=== PATIENT | female | born 1940 | race Caucasian/White ===

== ENCOUNTER 2017-07-09 10:58 | Inpatient (IN) | payer MEDICARE ==
[~2017-07-09] VITALS: Ht 172.7 cm; Wt 110.7 kg
--- NOTE | 2017-07-09 11:03 | NUR ---
JOHANNA FROM [facility]: G-TUBE REMOVAL. SEND BY DR MAE
[2017-07-09 12:07] LABS: BASOPHILS % (AUTO) 0.7 % (0.0-2.0); EOSINOPHILS # (AUTO) 0.5 /CMM (0.0-0.7); EOSINOPHILS % (AUTO) 6.8 % (0.0-6.0); HEMATOCRIT 28 % (33-45); HEMOGLOBIN 8.9 g/dL (11.5-14.8); LYMPHOCYTES # (AUTO) 1.4 /CMM (0.8-4.8); LYMPHOCYTES % (AUTO) 20.6 % (20.0-44.0); MEAN CORPUSCULAR HEMOGLOBIN 32 PG (26.0-33.0); MEAN CORPUSCULAR HGB CONC 32 g/dl (31.0-36.0); MEAN CORPUSCULAR VOLUME 100 fL (82-100); MONOCYTES # (AUTO) 0.7 /CMM (0.1-1.30); MONOCYTES % (AUTO) 10.1 % (2.0-12.0); NEUTROPHILS # (AUTO) 4.3 /CMM (1.8-8.9); NEUTROPHILS % (AUTO) 61.8 % (43.0-81.0); PLATELET COUNT (AUTO) 204 /CMM (150-450); RDW COEFFICIENT OF VARIATION 16.9 (11.5-15.0); RED BLOOD CELL COUNT(AUTO) 2.78 MIL/uL (4.0-5.2); WHITE BLOOD COUNT (AUTO) 6.9 K/uL (4.3-11.0)
[2017-07-09 12:20] LABS: CALCIUM, SERUM 8.7 mg/dL (8.5-10.1); CARBON DIOXIDE 26 mmol/L (21-32); CHLORIDE 105 mmol/L (98-107); CREATININE 1.2 mg/dL (0.6-1.3); GLUCOSE 123 mg/dL (74-106); POTASSIUM 3.9 mmol/L (3.5-5.1); SODIUM SERUM 139 mmol/L (136-145); UREA NITROGEN, BLOOD 8 mg/dL (7-18)
[2017-07-09] MEDS ORDERED: ASCO250T5 PO (12:29)
[2017-07-09] MEDS ORDERED: DARB60DI SQ (12:29)
[2017-07-09] MEDS ORDERED: ALBU2.5V38 NEB (12:29)
[2017-07-09] MEDS ORDERED: CLON0.1T PO (12:29)
[2017-07-09] MEDS ORDERED: MAGN400O6 PO (12:29)
[2017-07-09] MEDS ORDERED: CHOL200026 PO (12:29)
[2017-07-09] MEDS ORDERED: FOLI1TAB16 PO (12:29)
[2017-07-09] MEDS ORDERED: OMEP40CA37 PO (12:29)
[2017-07-09] MEDS ORDERED: ATOR20TA PO (12:29)
[2017-07-09] MEDS ORDERED: LEVO75TA7 PO (12:29)
[2017-07-09] MEDS ORDERED: BISA10SU8 RC (12:29)
[2017-07-09] MEDS ORDERED: APIX5TAB PO (12:29)
[2017-07-09] MEDS ORDERED: SIME120L PO (12:29)
[2017-07-09] MEDS ORDERED: SUCR1TAB PO (12:29)
[2017-07-09] MEDS ORDERED: HYDR-552 PO (12:29)
[2017-07-09] MEDS ORDERED: INSU100V26 SQ (12:29)
[2017-07-09] MEDS ORDERED: ACET-868 PO (12:29)
[2017-07-09] MEDS ORDERED: MULT1TAB11 PO (12:29)
[2017-07-09] MEDS ORDERED: NA P133E RC (12:29)
[2017-07-09 12:47] LABS: INR 1.09 (0.87-1.13); PROTHROMBIN TIME 11.7 SECS (9.5-12.7)
--- NOTE | 2017-07-09 13:21 | NUR ---
PAGED JEWELRY BEARING MAKER MD FOR PANEL FOR ADMISSION
--- NOTE | 2017-07-09 13:44 | NUR ---
PAGED DR CARRANZA FOR GI CONSULT
--- NOTE | 2017-07-09 13:49 | NUR ---
DR CARRANZA CALLED BACK, TRANSFERRED CALL TO DR DOUGLAS
--- NOTE | 2017-07-09 14:13 | NUR ---
GAVE REPORT TO RAINA ZABALA MEDSURG DR CRUZ AND DR RENEE SOLORIO . REMOVAL OF GTUBE
[2017-07-09 15:00] VITALS: BP 111/51
--- NOTE | 2017-07-09 15:00 | NUR ---
RN NOTES PT. HAS G TUBE IN PLACE AWAITING REMOVAL THIS SATURDAY BY DR. CARRANZA.
--- NOTE | 2017-07-09 15:00 | NUR ---
ADMISSION RECEIVED PT. A&OX4. MOVED TO ROOM 327 BED 2. BREATHING UNLABORED. NO S/S OF ACUTE DISTRESS. PT. HAS A LEFT UPPER ARM PICC IV ACCESS LINE, AND A RIGHT CHEST WALL CATHETER. PT. RECEIVED DIALYSIS YESTERDAY PER PT. PT.'S BELONGINGS LIST WAS COMPLETED AND SIGNED.
[2017-07-09] MEDS ORDERED: IV D5/0.45 NACL 1,000 ML IV PRN (15:21)
[2017-07-09] MEDS ORDERED: ONDANSETRON HCL/PF 4 MG/2 ML VIAL IVP PRN (15:30)
[2017-07-09] MEDS ORDERED: ACETAMINOPHEN 325 MG TABLET PO PRN (15:30)
[2017-07-09] MEDS ORDERED: Z GUARD REMEDY 2 OZ OINT TP PRN (15:30)
[2017-07-09] MEDS ORDERED: MAG HYDROX/AL HYDROX/SIMETH 30 ML UDC PO PRN (15:30)
[2017-07-09] MEDS ORDERED: MAGNESIUM HYDROXIDE 30 ML UDC PO PRN ×2 (15:30→23:00)
[2017-07-09 16:00] VITALS: BP 111/51
--- NOTE | 2017-07-09 16:30 | NUR ---
RN NOTES PT. PICTURES TAKEN ON SKIN ASSESSMENT.
[2017-07-09] MEDS ORDERED: DEXTROSE 50%-WATER 50 ML DISP.SYRIN IV PRN (18:00)
--- NOTE | 2017-07-09 18:00 | NUR ---
BLOOD SUGAR 132 MG/DL, PT. REFUSED COVERAGE.
[2017-07-09] MEDS: BLOOD SUGAR DIAGNOSTIC 1 EACH STRIP IN SCH ×2 (18:31→22:01)
[2017-07-09] MEDS: INSULIN REGULAR, HUMAN 100 UNIT/ML 3 ML VIAL SQ PRN (18:31)
--- NOTE | 2017-07-09 19:11 | NUR ---
RN CLOSING NOTES PT. IS IN BED A&OX4. BREATHING ON OXYGEN 2L/MIN, AND NO S/S OF SOB. NO S/S OF ACUTE DISTRESS. PER IV FLUIDS HELD AT THIS TIME DUE TO PT. IS ABLE TO TOLERATE FOOD/LIQUID INTAKE. BED IS IN LOW POSITION, 2 SIDE RAILS UP, AND INSTRUCTED PT. TO USE CALL LIGHT FOR ASSISTANCE.
--- NOTE | 2017-07-09 19:35 | NUR ---
MS/RN NOTES RECEIVED PT. LYING IN BED. AWAKE, ALERT AND ORIENTED X3. BREATHING EVEN AND UNLABORED ON 2LPM O2 VIA NC. NO SOB, RESPIRATORY DISTRESS OR PAIN NOTED AT THIS TIME. PT. WITH LEFT UPPER ARM PICC PRESENT, PATENT AND INTACT. NO S/S OF HYPO/HYPERGLYCEMIA NOTED AT THIS TIME. BED LOCKED AND IN LOWEST POSITION, CALL LIGHT WITHIN REACH, SIDE RAILS UP X2, WILL CONTINUE TO MONITOR.
[2017-07-09 20:00] VITALS: BP 101/59
[2017-07-09] MEDS: HYDROCODONE/APAP 5/325MG 1 EACH TABLET PO PRN (21:56)
[2017-07-09] MEDS ORDERED: ALBUTEROL FS 2.5 MG/3 ML VIAL.NEB NEB PRN (23:00)
[2017-07-09] MEDS ORDERED: BISACODYL SUPP (10 MG) 10 MG/SUPP.RECT SUPP.RECT RC PRN (23:00)
[2017-07-09] MEDS ORDERED: CLONIDINE HCL 0.1 MG TABLET PO PRN (23:00)
--- NOTE | 2017-07-10 06:40 | NUR ---
MS/RN NOTES PT. IS LYING IN BED RESTING. BREATHING EVEN AND UNLABORED ON 2LPM O2 VIA NC. NO SOB, RESPIRATORY DISTRESS OR PAIN NOTED AT THIS TIME. NO S/S OF HYPO/HYPERGLYCEMIA NOTED AT THIS TIME AND THROUGHOUT SHIFT. PT. WITH LEFT UPPER ARM PICC PRESENT, PATENT AND INTACT. ALL PT. NEEDS MET. BED LOCKED AND IN LOWEST POSITION, CALL LIGHT WITHIN REACH, SIDE RAILS UP X2, WILL ENDORSE TO DAYSHIFT NURSE FOR CONTINUITY OF CARE.
[2017-07-10] MEDS: BLOOD SUGAR DIAGNOSTIC 1 EACH STRIP IN SCH ×4 (06:47→21:21)
[2017-07-10 07:42] LABS: BASOPHILS % (AUTO) 0.4 % (0.0-2.0); EOSINOPHILS # (AUTO) 0.4 /CMM (0.0-0.7); EOSINOPHILS % (AUTO) 6.7 % (0.0-6.0); HEMATOCRIT 28 % (33-45); HEMOGLOBIN 8.9 g/dL (11.5-14.8); LYMPHOCYTES # (AUTO) 1.9 /CMM (0.8-4.8); LYMPHOCYTES % (AUTO) 29.3 % (20.0-44.0); MEAN CORPUSCULAR HEMOGLOBIN 32 PG (26.0-33.0); MEAN CORPUSCULAR HGB CONC 32 g/dl (31.0-36.0); MEAN CORPUSCULAR VOLUME 101 fL (82-100); MONOCYTES # (AUTO) 0.7 /CMM (0.1-1.30); MONOCYTES % (AUTO) 11.4 % (2.0-12.0); NEUTROPHILS # (AUTO) 3.4 /CMM (1.8-8.9); NEUTROPHILS % (AUTO) 52.2 % (43.0-81.0); PLATELET COUNT (AUTO) 196 /CMM (150-450); RED BLOOD CELL COUNT(AUTO) 2.77 MIL/uL (4.0-5.2); WHITE BLOOD COUNT (AUTO) 6.5 K/uL (4.3-11.0)
[2017-07-10 07:58] LABS: CALCIUM, SERUM 8.8 mg/dL (8.5-10.1); CARBON DIOXIDE 28 mmol/L (21-32); CHLORIDE 105 mmol/L (98-107); CREATININE 1.5 mg/dL (0.6-1.3); GLUCOSE 129 mg/dL (74-106); MAGNESIUM 1.9 mg/dL (1.8-2.4); PHOSPHORUS 3.6 mg/dL (2.5-4.9); POTASSIUM 3.8 mmol/L (3.5-5.1); SODIUM SERUM 138 mmol/L (136-145); UREA NITROGEN, BLOOD 11 mg/dL (7-18)
--- NOTE | 2017-07-10 07:59 | NUR ---
RN OPENING NOTES RECEIVED PT. IN BED SLEEPING, EASILY AWAKENS. PT. IS A&OX4. BREATHING UNLABORED ON OXYGEN 2L/MIN WITH NASAL CANNULA. NO S/S OF ACUTE DISTRESS. BED IS IN LOWEST POSITION, 2 SIDE RAILS UP, AND INSTRUCTED PT. TO USE CALL LIGHT WITHIN REACH. ALL NEEDS ATTENDED TO AT THIS TIME.
[2017-07-10 08:00] VITALS: BP 129/61
--- NOTE | 2017-07-10 08:55 | NUR ---
RT NOTE: LATE ENTRY EKG REPORTED TO NURSE
[2017-07-10] MEDS ORDERED: SIMETHICONE SUSP 40 MG/0.6 ML BOTTLE PO PRN (09:00)
--- NOTE | 2017-07-10 09:00 | NUR ---
RN NOTES PT. SWALLOWS FLUIDS AND MEDICATIONS WITHOUT DIFFICULTY. PT. IS TOLERATING FOOD INTAKE AND SWALLOWING. PT. IS WEARING DENTURES UPPER AND LOWER.
[2017-07-10] MEDS: LEVOTHYROXINE SODIUM 75 MCG TABLET PO SCH (09:07)
[2017-07-10] MEDS: FOLIC ACID 1 MG TABLET PO SCH (09:07)
[2017-07-10] MEDS: ASCORBIC ACID 500 MG TABLET PO SCH (09:07)
[2017-07-10] MEDS: SUCRALFATE 1 G TABLET PO SCH ×3 (09:07→17:04)
[2017-07-10] MEDS: PANTOPRAZOLE 40 MG TABLET.DR PO SCH (09:07)
[2017-07-10 09:27] LABS: THYROID STIMULATING HORMONE 1.199 uIU/mL (0.358-3.74)
--- NOTE | 2017-07-10 15:00 | NUR ---
RN NOTES PT. IS VOIDING. PT. VOIDED IN BED ROMO CLEAR AND YELLOW URINE.
--- NOTE | 2017-07-10 15:50 | NUR ---
RN NOTES PT.'S PICC LINE IS INTACT AND PATENT TO FLUSH WITH 10 CC OF NORMAL SALINE.
[2017-07-10 16:00] VITALS: BP 133/72
--- NOTE | 2017-07-10 18:55 | NUR ---
RN CLOSING NOTES PT. IN BED SLEEPING, AWAKENS EASILY. PT. IS A&OX4. BREATHING UNLABORED ON OXYGEN 2L/MIN WITH NASAL CANNULA. NO S/S OF ACUTE DISTRESS. BED IS IN LOWEST POSITION, BED ALARM ON, 2 SIDE RAILS UP, AND INSTRUCTED PT. TO USE CALL LIGHT WITHIN REACH. PT. WAS SEEN AND EXAMINED TODAY BY DR. CRUZ.
--- NOTE | 2017-07-10 19:40 | NUR ---
RN INITIAL NOTES: RECEIVED REPORT FROM RAINA ZABALA, PT IN BED, AWAKE, A/O X3, PT ON 2L VIA NC, RESPIRATION EVEN AND UNLABORED, PT HAS RCW HD CATH IN PLACED DRESSING C/D/I, PT ALSO HAVE STEPHANIE PICC LINE WITH DOUBLE LUMEN PATENT AND FLUSHING WELL, ON HL. BLE OFFLOADED, SAFETY PRECAUTIONS FOR FALL INITIATED CALL LIGHT IN REACH, WILL CONTINUE TO MONITOR.
[2017-07-10 19:58] VITALS: BP 128/61
[2017-07-10 20:00] VITALS: BP 128/61
--- NOTE | 2017-07-10 20:00 | NUR ---
VJ INITIAL NOTES: RECEIVED REPORT FROM VIVIENNE ZABALA, PT IN BED, AWAKE, A/O X3, PT ON 2L VIA NC, RESPIRATION EVEN AND UNLABORED, PT HAS RCW HD CATH IN PLACED DRESSING C/D/I, PT ALSO HAVE STEPHANIE PICC LINE WITH DOUBLE LUMEN PATENT AND FLUSHING WELL, ON HL. BLE OFFLOADED, SAFETY PRECAUTIONS FOR FALL INITIATED CALL LIGHT IN REACH, WILL CONTINUE TO MONITOR. Addendum: 07/11/17 at 0003 by ADELINE SMITH RN CORRECTION OF ENTRY: RECEIVED REPORT FROM RAINA AND KAY PALAFOX
[2017-07-10] MEDS ORDERED: HEPARIN SODIUM, PORCINE 5000 UNITS/1 ML VIAL SQ SCH (21:00)
[2017-07-10] MEDS: ATORVASTATIN 10 MG TABLET PO SCH (21:21)
[2017-07-10] MEDS: HYDROCODONE/APAP 5/325MG 1 EACH TABLET PO PRN (21:21)
[2017-07-10] MEDS: INSULIN REGULAR, HUMAN 100 UNIT/ML 3 ML VIAL SQ PRN (21:21)
--- NOTE | 2017-07-10 21:21 | NUR ---
PRN NORCO: PT C/O LOWER BACK PAIN 04/29 REQUESTING FOR NORCO, PRN NORCO 5/325 MG TAB PO ADMINISTERED TO THE PT AT THIS TIME, EDUCATE PT REGARDING MEDICATION SIDE EFFECT, WILL CONTINUE TO MONITOR AND REASSESS
--- NOTE | 2017-07-10 21:25 | NUR ---
ACCU CHECK: BLOOD SUGAR CHECK AND REVEAL 127, NO INSULIN COVERAGE GIVEN PER SLIDING SCALE, WILL MONITOR PT FOR ANY S/S OF HYPOGLYCEMIA
--- NOTE | 2017-07-10 21:52 | NUR ---
HOLD DOSE OF HEPARIN: INFORMED DR SINGLETARY THAT PT IS GOING FOR EGD TOMORROW AM, PER MD TO HOLD ORDER FOR HEPARIN TONIGHT 07/10/17
--- NOTE | 2017-07-10 22:13 | NUR ---
RN NOTES: EXPLAINED TO THE PT THAT SHE WILL BE GOING FOR AN EGD IN AM AND PEG REMOVAL, PT AGREE AND UNDERSTAND THE RISK AND BENEFITS, AND GIVING HER FULL CONSENT FOR THE PROCEDURE, EVERYTHING ARE SIGNED BY THE PT,
[2017-07-11 06:37] LABS: BASOPHILS # (AUTO) 0.1 /CMM (0.0-0.2); EOSINOPHILS # (AUTO) 0.4 /CMM (0.0-0.7); EOSINOPHILS % (AUTO) 6.7 % (0.0-6.0); HEMATOCRIT 28 % (33-45); HEMOGLOBIN 9.2 g/dL (11.5-14.8); LYMPHOCYTES # (AUTO) 1.9 /CMM (0.8-4.8); MEAN CORPUSCULAR HEMOGLOBIN 33 PG (26.0-33.0); MEAN CORPUSCULAR HGB CONC 33 g/dl (31.0-36.0); MEAN CORPUSCULAR VOLUME 101 fL (82-100); MONOCYTES # (AUTO) 0.7 /CMM (0.1-1.30); NEUTROPHILS # (AUTO) 3.4 /CMM (1.8-8.9); NEUTROPHILS % (AUTO) 52.3 % (43.0-81.0); PLATELET COUNT (AUTO) 193 /CMM (150-450); RDW COEFFICIENT OF VARIATION 16.3 (11.5-15.0); WHITE BLOOD COUNT (AUTO) 6.4 K/uL (4.3-11.0)
[2017-07-11] MEDS: INSULIN REGULAR, HUMAN 100 UNIT/ML 3 ML VIAL SQ PRN ×2 (06:40→12:34)
[2017-07-11] MEDS: BLOOD SUGAR DIAGNOSTIC 1 EACH STRIP IN SCH ×4 (06:40→21:48)
--- NOTE | 2017-07-11 06:41 | NUR ---
ACCU CHECK: BLOOD SUGAR CHECKED AND REVEAL 117, NO INSULIN COVERAGE GIVEN PER SLIDING SCALE, WILL MONITOR PT FOR ANY S/S OF HYPOGLYCEMIA
--- NOTE | 2017-07-11 06:42 | NUR ---
RN NOTES: PT'S SWEATER, GLASSES AND Z GUARD PLACED IN A BELONGING BAG WITH PT'S SENIOR HR MANAGER IT, ALSO DENTURE CAP GIVEN TO THE PT INFORMED THAT HER DENTURES NEEDS TO BE REMOVE, PT AGREE AND STATED SHE WILL TAKE HER DENTURES BY HERSELF SHE FEELS MORE COMFORTABLE DOING IT HERSELF.
[2017-07-11 06:46] LABS: INR 1.11 (0.87-1.13)
--- NOTE | 2017-07-11 06:53 | NUR ---
RN CLOSING NOTES: PT AWAKE, A/O X3 ON 2L VIA NC, RESPIRATION EVEN AND UNLABORED, STEPHANIE PICC LINE REMAINS PATENT AND FLUSHING WELL, ON HL, ALSO RCW HD CATH REMAINS IN PLACED. PT ON NPO EXCEPT MEDS, FOR EGD TODAY CONSENT SIGNED BY THE PT, PROCEDURE WILL BE AT 0800AM WITH DR CARRANZA,CHECKLIST COMPLETED. VS REMAINS STABLE, NEEDS ATTENDED, SAFETY PRECAUTIONS FOR FALL REMAINS ENGAGED, CALL LIGHT IN REACH, WILL ENDORSE TO DAY RN FOR DUTCH.
[2017-07-11 06:54] VITALS: BP 134/71
[2017-07-11 06:58] LABS: CALCIUM, SERUM 8.6 mg/dL (8.5-10.1); CARBON DIOXIDE 27 mmol/L (21-32); CHLORIDE 108 mmol/L (98-107); CREATININE 1.5 mg/dL (0.6-1.3); GLUCOSE 129 mg/dL (74-106); SODIUM SERUM 141 mmol/L (136-145); UREA NITROGEN, BLOOD 14 mg/dL (7-18)
--- NOTE | 2017-07-11 07:25 | NUR ---
RN NOTES PATIENT AWAKE ALERT AND VERBALLY RESPONSIVE ABLE TO MAKE NEEDS KNOWN. RESPIRATIONS EVEN AND UNLABORED, IN NO APPARENT PAIN OR DISCOMFORT AT THIS TIME. IV ACCESS PATENT AND INTACT, NO REDNESS OR INFILTRATION NOTED. KEPT CLEAN DRY AND COMFORTABLE, CALL LIGHT WITHIN EASY REACH, WILL CONTINUE TO MONITOR, PATIENT FOR PROCEDURE TODAY.
--- NOTE | 2017-07-11 07:45 | NUR ---
RN NOTES PATIENT TAKEN TO OR BY TRANSPORTER, IN STABLE CONDITION WILL CONTINUE TO MONITOR UPON RETURN TO UNIT
[2017-07-11 08:30] VITALS: BP 147/63
[2017-07-11] MEDS: SUCRALFATE 1 G TABLET PO SCH ×3 (10:12→17:46)
[2017-07-11] MEDS: ASCORBIC ACID 500 MG TABLET PO SCH (10:12)
[2017-07-11] MEDS: LEVOTHYROXINE SODIUM 75 MCG TABLET PO SCH (10:13)
[2017-07-11] MEDS: FOLIC ACID 1 MG TABLET PO SCH (10:13)
[2017-07-11] MEDS: PANTOPRAZOLE 40 MG TABLET.DR PO SCH (10:13)
[2017-07-11] MEDS ORDERED: ANESTHESIA TRAY IN PYXIS 1 EA TRAY MC ONE ×4 (10:16)
[2017-07-11] MEDS: APIXABAN 5 MG TABLET PO SCH ×2 (11:42→17:46)
--- NOTE | 2017-07-11 12:36 | NUR ---
SW consult requested by Dr. Jaramillo to investigate why Pt. has a Gtube and is receiving dialysis when it is not needed at this time. SW met with pt. bedside. Pt. is alert and oriented x4. Pt. was watching TV when SW met with pt. Pt. informed SW that she was at [facility] prior to being at [facility]. Pt. stated when she arrived at [facility] they were unable to locate her dentures and glasses. Pt. believes that since she did not have her teeth the hospital placed a Gtube to assist in feeding. Pt. also stated she began receiving dialysis at [facility] as well. Per Dr. Jaramillo, pt. does not need peg placement or dialysis at this time.
[2017-07-11 16:00] VITALS: BP 138/71
--- NOTE | 2017-07-11 19:08 | NUR ---
RN NOTES PATIENT AWAKE ALERT AND VERBALLY RESPONSIVE ABLE TO MAKE NEEDS KNOWN. RESPIRATIONS EVEN AND UNLABORED, IN NO APPARENT PAIN OR DISCOMFORT AT THIS TIME. IV ACCESS PATENT AND INTACT, NO REDNESS OR INFILTRATION NOTED. S/P GTUBE REMOVAL NO DRAINAGE NOTED TO SITE, KEPT CLEAND, WOUND CARE ORDERED. KEPT CLEAN DRY AND COMFORTABLE, CALL LIGHT WITHIN EASY REACH, WILL CONTINUE TO MONITOR AND ENDORSE TO NEXT SHIFT FOR CONTINUITY OF CARE
--- NOTE | 2017-07-11 19:40 | NUR ---
RN OPENING NOTES RECEIVED REPORT FROM SOLE GAN RN. FOUND Pt AWAKE RESTING IN BED. Pt IS A/OX4. NO S/S OF ACUTE DISTRESS OR SOB NOTED. NO C/O PAIN AT THIS TIME. IV ACCESS ON STEPHANIE PICC, DOUBLE LUMEN; RCW HD CATH. SAFETY MEASURES IN PLACE. BED LOW, LOCKED, HOB ELEVATED, SIDE RAILS UP, CALL LIGHT AND BEDSIDE TABLE WITHIN REACH. WILL CONTINUE TO MONITOR Pt THROUGHOUT THE NIGHT FOR SAFETY.
[2017-07-11 20:00] VITALS: BP 122/60
[2017-07-11] MEDS: ATORVASTATIN 10 MG TABLET PO SCH (21:48)
--- NOTE | 2017-07-11 21:53 | NUR ---
HS ACCUCHECK BG 94. NO INSULIN COVERAGE NEEDED AT THIS TIME.
[2017-07-11] MEDS: HYDROCODONE/APAP 5/325MG 1 EACH TABLET PO PRN (21:58)
--- NOTE | 2017-07-12 06:30 | NUR ---
AC ACCUCHECK BG 108. NO INSULIN COVERAGE NEEDED AT THIS TIME.
--- NOTE | 2017-07-12 06:46 | NUR ---
RN CLOSING NOTES NO SIGNIFICANT CHANGES IN Pt's CONDITION. Pt REMAINS STABLE ON M/S. NO S/S OF ACUTE DISTRESS OR SOB NOTED DURING THE NIGHT. ALL NEEDS MET AND ATTENDED TO. SAFETY MEASURES IN PLACE. WILL ENDORSE TO DAYSHIFT RN FOR Pt's DUTCH.
[2017-07-12] MEDS: BLOOD SUGAR DIAGNOSTIC 1 EACH STRIP IN SCH ×2 (07:00→12:17)
--- NOTE | 2017-07-12 07:30 | NUR ---
RN NOTES PATIENT ALERT AND ORIENTED X4. VS STABLE. RESPIRATIONS EVEN AND UNLABORED. NO RESPIRATORY DISTRESS. NO SIGNIFICANT CHANGES IN CONDITION. BED IN LOW POSITION. SIDE RAILS X2. CALL LIGHT WITHIN REACH. CONTINUE TO MONITOR.
[2017-07-12 07:46] LABS: CALCIUM, SERUM 8.8 mg/dL (8.5-10.1); CARBON DIOXIDE 27 mmol/L (21-32); CHLORIDE 106 mmol/L (98-107); CREATININE 1.5 mg/dL (0.6-1.3); GLUCOSE 117 mg/dL (74-106); MAGNESIUM 1.8 mg/dL (1.8-2.4); PHOSPHORUS 4.4 mg/dL (2.5-4.9); POTASSIUM 4.3 mmol/L (3.5-5.1); SODIUM SERUM 140 mmol/L (136-145); UREA NITROGEN, BLOOD 16 mg/dL (7-18)
[2017-07-12 08:00] VITALS: BP 132/70
[2017-07-12] MEDS: PANTOPRAZOLE 40 MG TABLET.DR PO SCH (08:09)
[2017-07-12] MEDS: SUCRALFATE 1 G TABLET PO SCH ×2 (08:09→12:24)
[2017-07-12] MEDS: FOLIC ACID 1 MG TABLET PO SCH (08:10)
[2017-07-12] MEDS: APIXABAN 5 MG TABLET PO SCH (08:10)
[2017-07-12] MEDS: LEVOTHYROXINE SODIUM 75 MCG TABLET PO SCH (08:10)
[2017-07-12] MEDS: ASCORBIC ACID 500 MG TABLET PO SCH (08:10)
[2017-07-12] MEDS ORDERED: BUMETANIDE (1 MG) 1 MG TABLET PO SCH (11:30)
[2017-07-12] MEDS ORDERED: NYSTATIN TOP POWDER 15 GM BOTTLE TP SCH (12:30)
[2017-07-12] MEDS: INSULIN REGULAR, HUMAN 100 UNIT/ML 3 ML VIAL SQ PRN (12:47)
--- NOTE | 2017-07-12 14:30 | NUR ---
RN NOTES PER MD ORDERS, OBTAIN CONSENT FOR REMOVAL OF HD CATHETER SITE, EXPLAINED BY MD WITH NOTED VERBAL UNDERSTANDING, MD REMOVED CENTRAL LINE WITH NO COMPLICATIONS, CONTINUE TO MONITOR
[2017-07-12 16:07] VITALS: BP 141/72
--- NOTE | 2017-07-12 16:30 | NUR ---
RN NOTES PATIENT DISCHARGED TO [facility] BY AMBULANCE. VS STABLE. TRANSFERRED VIA STRETCHER WITH TWO DEGREASER. NO DISTRESS, NO SOB , PAIN NOTED. PICC LINE ON STEPHANIE WITH TWO LUMEN REPORT. SITE CLEAR, NO REDNESS NOTED, NO INFILTRATION NOTED. SKIN CLEAN AND INTACT. GIVEN TO SNF RN. BELONGINGS CHECKED AND BROUGHT BY THE PATIENT UPON DISCHARGE. DISCHARGE TEACHING PROVIDED, ALL DOCUMENTS SINGED AND DATED, COPIES PROVIDED TO [facility]. ALL MEDICATIONS ADMINISTERED BEFORE D/C ORDERED BY . Addendum: 07/12/17 at 1927 by ERASTO MOODY RN RN NOTES CORRECTION OF ENTRY PICC ON STEPHANIE REMOVED WITH NO COMPLICATIONS. REPORT GIVEN TO SNF RN. AWARE TO CONTINUE TO MONITOR.
[2017-09-05] MEDS ORDERED: LEVO500T15 PO (11:42)
[2017-09-05] MEDS ORDERED: Digoxin PO (11:42)
[2017-09-05] MEDS ORDERED: FURO-145 PO (11:42)
[2017-09-05] MEDS ORDERED: PRED20TA PO (11:42)
[2017-09-05] MEDS ORDERED: RIVA10TA PO (11:42)
== END 2017-07-12 16:24 | DRG 327 ==
LOC: ER 11:03 → MED 14:26
PROVIDERS: ADMIT Internal Medicine; ATTEND Internal Medicine
PROC: 0DB68ZX Excision of Stomach, Via Natural or Artificial Opening Endoscopic, Diagnostic (ICD-10-PCS; 2017-07-11)
PROC: 0DP64UZ Removal of Feeding Device from Stomach, Percutaneous Endoscopic Approach (ICD-10-PCS; principal; 2017-07-11 08:11)
PROC: 05PYX3Z Removal of Infusion Device from Upper Vein, External Approach (ICD-10-PCS; 2017-07-12)
DX: K94.23 Gastrostomy malfunction (principal); E44.0 Moderate protein-calorie malnutrition; E11.22 Type 2 diabetes mellitus with diabetic chronic kidney disease; D69.2 Other nonthrombocytopenic purpura; I48.0 Paroxysmal atrial fibrillation; I13.0 Hypertensive heart and chronic kidney disease with heart failure and stage 1 through stage 4 chronic kidney disease, or unspecified chronic kidney disease; L89.621 Pressure ulcer of left heel, stage 1; I50.32 Chronic diastolic (congestive) heart failure; E03.9 Hypothyroidism, unspecified; L89.611 Pressure ulcer of right heel, stage 1; E78.5 Hyperlipidemia, unspecified; E66.9 Obesity, unspecified; D53.9 Nutritional anemia, unspecified; K21.9 Gastro-esophageal reflux disease without esophagitis; K29.70 Gastritis, unspecified, without bleeding; Z79.01 Long term (current) use of anticoagulants; I25.10 Atherosclerotic heart disease of native coronary artery without angina pectoris; Z68.37 Body mass index [BMI] 37.0-37.9, adult; Y84.9 Medical procedure, unspecified as the cause of abnormal reaction of the patient, or of later complication, without mention of misadventure at the time of the procedure; Y82.8 Other medical devices associated with adverse incidents; Y92.129 Unspecified place in nursing home as the place of occurrence of the external cause; N18.9 Chronic kidney disease, unspecified; L30.4 Erythema intertrigo; L98.9 Disorder of the skin and subcutaneous tissue, unspecified; I87.8 Other specified disorders of veins
CPT/HCPCS: 36415; 71010-TC; 80048-TC; 80061-TC; 82306; 82728-TC; 82962-TC; 83540-TC; 83735-TC; 84100-TC; 84439-TC; 84443-TC; 85025-TC; 85610-TC; 85730-TC; 86850-TC; 87081-TC; 88305-TC; 88313-TC; 88342; 93307-TC; A4606; A6402; A6403; J1644; J1815; J2704; J3490; Z7610

== ENCOUNTER 2017-08-06 08:10 | Inpatient (IN) | payer MEDICARE ==
[~2017-08-06] VITALS: Ht 172.7 cm; Wt 115.2 kg
[~2017-08-06 08:10] MED LIST: ACET-868 PO; ALBU2.5V38 NEB; APIX5TAB PO; ASCO250T5 PO; ATOR20TA PO; BISA10SU8 RC; CHOL200026 PO; CLON0.1T PO; DARB60DI SQ; FOLI1TAB16 PO; HYDR-552 PO; INSU100V26 SQ; LEVO75TA7 PO; MAGN400O6 PO; MULT1TAB11 PO; NA P133E RC; OMEP40CA37 PO; SIME120L PO; SUCR1TAB PO
--- NOTE | 2017-08-06 08:15 | NUR ---
BERNARDINO FROM [facility] FOR RECTAL BLEED. PATIENT A/OX 4. BREATHING EVEN AND UNLABORED. NO SOB. TACHYCARDIC, NO DISTRESS. SAFETY AND COMFORT MEASURES IN PLACE. AWAITING MD ORDERS.
[2017-08-06] MEDS ORDERED: FAMOTIDINE/PF INJ 20 MG/2 ML VIAL IV ONE ×2 (08:30→08:39)
[2017-08-06] MEDS ORDERED: MORPHINE SULFATE INJ 2 MG/ML DISP.SYRIN IV ONE (08:30)
[2017-08-06] MEDS ORDERED: ONDANSETRON HCL/PF 4 MG/2 ML VIAL IVP ONE (08:30)
[2017-08-06] MEDS ORDERED: IV NS 0.9% 1,000 ML BAG IV ONE (08:30)
[2017-08-06] MEDS ORDERED: ONDANSETRON HCL/PF 4 MG/2 ML VIAL ONE (08:38)
[2017-08-06] MEDS ORDERED: MORPHINE SULFATE INJ 2 MG/ML DISP.SYRIN ONE (08:38)
--- NOTE | 2017-08-06 08:50 | NUR ---
NEW IV STARTED LAC, 20 G.
[2017-08-06] MEDS ORDERED: DILTIAZEM HCL 25 MG IV IV ONE ×2 (09:00→10:30)
--- NOTE | 2017-08-06 09:00 | NUR ---
PATIENT MEDICATED PER MD ORDERS.
[2017-08-06] MEDS ORDERED: DILTIAZEM HCL 25 MG IV ONE ×2 (09:03→10:32)
[2017-08-06] MEDS ORDERED: MELA3TAB PO (09:09)
[2017-08-06] MEDS ORDERED: DEXT15DR6 EACHEYE (09:09)
[2017-08-06] MEDS ORDERED: SIME80TA15 PO (09:09)
--- NOTE | 2017-08-06 09:30 | NUR ---
PATIENT TAKEN TO CT VIA STRETCHER.
[2017-08-06 09:36] LABS: EOSINOPHILS % (AUTO) 0.1 % (0.0-6.0); LYMPHOCYTES # (AUTO) 0.5 /CMM (0.8-4.8); MEAN CORPUSCULAR HEMOGLOBIN 31 PG (26.0-33.0); MEAN CORPUSCULAR HGB CONC 32 g/dl (31.0-36.0); MEAN CORPUSCULAR VOLUME 98 fL (82-100); MONOCYTES # (AUTO) 0.7 /CMM (0.1-1.30); RDW COEFFICIENT OF VARIATION 15.3 (11.5-15.0)
[2017-08-06 09:37] LABS: CALCIUM, SERUM 8.9 mg/dL (8.5-10.1); CARBON DIOXIDE 26 mmol/L (21-32); CHLORIDE 106 mmol/L (98-107); CREATININE 1.3 mg/dL (0.6-1.3); GLUCOSE 175 mg/dL (74-106); POTASSIUM 4.2 mmol/L (3.5-5.1); SODIUM SERUM 140 mmol/L (136-145); UREA NITROGEN, BLOOD 29 mg/dL (7-18)
[2017-08-06 09:43] LABS: BASOPHILS % (AUTO) 0.3 % (0.0-2.0); HEMATOCRIT 32 % (33-45); HEMOGLOBIN 10.3 g/dL (11.5-14.8); LYMPHOCYTES % (AUTO) 4.7 % (20.0-44.0); MONOCYTES % (AUTO) 6.2 % (2.0-12.0); NEUTROPHILS # (AUTO) 9.6 /CMM (1.8-8.9); NEUTROPHILS % (AUTO) 88.7 % (43.0-81.0); PLATELET COUNT (AUTO) 195 /CMM (150-450); WHITE BLOOD COUNT (AUTO) 10.8 K/uL (4.3-11.0)
[2017-08-06 09:47] LABS: ALANINE AMINOTRANSFERASE 11 U/L (12-78); ALBUMIN 2.8 g/dL (3.4-5.0); ALKALINE PHOSPHATASE 75 U/L (46-116); ASPARTATE AMINOTRANSFERASE 19 U/L (15-37); BILIRUBIN,DIRECT 0.1 mg/dL (0.0-0.2); BILIRUBIN,TOTAL 0.5 mg/dL (0.2-1.0); LIPASE 34 U/L (73-393); TOTAL PROTEIN, SERUM 6.6 g/dL (6.4-8.2)
[2017-08-06 09:48] LABS: TROPONIN I 0.099 ng/mL (0.00-0.056)
--- NOTE | 2017-08-06 09:52 | NUR ---
PANEL PROGRESSIVE CARE NURSE PAGED
--- NOTE | 2017-08-06 09:57 | NUR ---
16 FR conroy catheter inserted per sterile protocal. Immediate output 50 ML of urine, color yellow, clarity cloudy.
[2017-08-06 10:04] LABS: INR 1.24 (0.87-1.13); PROTHROMBIN TIME 12.9 SECS (9.5-12.7)
--- NOTE | 2017-08-06 10:30 | NUR ---
ACCEPTED BY DR CRUZ,WANTS PATIENT ACCEPTED TO [facility]
--- NOTE | 2017-08-06 11:18 | NUR ---
URINE OBTAINED AND SENT TO LAB. REPORT GIVEN TO ARLET ZABALA FOR ADMISSION.
[2017-08-06 11:30] LABS: APPEARANCE,URINE Cloudy (CLEAR); BILIRUBIN,URINE SMALL (NEGATIVE); BLOOD, URINE Moderate Ery/uL (NEGATIVE); COLOR,URINE Other (YELLOW); KETONES,URINE Trace (NEGATIVE); LEUKOCYTE ESTERASE ,URINE Small (NEGATIVE); NITRITE, URINE Negative (NEGATIVE); PH,URINE 5.5 (5.0-8.0); PROTEIN,URINE 100 mg/dl (NEGATIVE); UGLUCOSE Negative (NEGATIVE); UROBILINOGEN,URINE 0.2 EU/dL (0.2)
[2017-08-06] MEDS ORDERED: ALBUTEROL FS 2.5 MG/3 ML VIAL.NEB NEB PRN (11:30)
[2017-08-06] MEDS ORDERED: MAGNESIUM HYDROXIDE 30 ML UDC PO PRN (11:30)
[2017-08-06] MEDS ORDERED: SIMETHICONE 80 MG TAB.CHEW PO PRN (11:30)
[2017-08-06] MEDS ORDERED: Z GUARD REMEDY 2 OZ OINT TP PRN (11:30)
[2017-08-06] MEDS ORDERED: ACETAMINOPHEN 325 MG TABLET PO PRN (11:30)
[2017-08-06] MEDS ORDERED: ZOLPIDEM TARTRATE 5 MG TABLET PO PRN (11:30)
[2017-08-06] MEDS ORDERED: ONDANSETRON HCL/PF 4 MG/2 ML VIAL IVP PRN (11:30)
[2017-08-06] MEDS ORDERED: MAG HYDROX/AL HYDROX/SIMETH 30 ML UDC PO PRN (11:30)
[2017-08-06] MEDS ORDERED: HYDROCODONE/APAP 5/325MG 1 EACH TABLET PO PRN (11:30)
--- NOTE | 2017-08-06 11:31 | NUR ---
PATIENT TRANSPORTED TO [facility] VIA ACLS PROTOCOL FOR ADMISSION. RNARLET TO PROVIDE DUTCH.
[2017-08-06 11:50] LABS: BACTERIA,URINE Few /HPF (None Seen); SQUAMOUS EPITHELIAL CELL,UR Few /HPF (None Seen)
[2017-08-06 12:00] VITALS: BP 107/61
--- NOTE | 2017-08-06 12:00 | NUR ---
LEARNING STRATEGIST NOTE RECEIVED PATIENT FROM ER WITH DX GI BLEEDING AFIB WITH RVR AND NSTEMI , ALERT , ORIENTED FAMILY AT BEDSIDE , ALL NEEDS ATTENDED VS TAKEN HOSPITAL ORIENTATION DONE, WITH BURGER CATH WITH YELLOW COLOR URINE , RT FA HL INTACT NO S\INFECTION ,ADMITTED UNDER CARE DR CRUZ, WILL CONT TO MONITOR CLOSELY
[2017-08-06 12:12] VITALS: BP 107/61
[2017-08-06] MEDS: SUCRALFATE 1 G TABLET PO SCH ×2 (12:59→17:10)
[2017-08-06] MEDS: DILTIAZEM HCL 30 MG TABLET PO SCH ×3 (12:59→23:51)
[2017-08-06] MEDS: METOPROLOL TARTRATE 25 MG TABLET PO SCH ×2 (13:00→21:41)
--- NOTE | 2017-08-06 15:00 | NUR ---
TECHNICAL ARCHITECT NOTE SEEN BY DR CHAVEZ BEHAVIORAL GENETICIST AWARE THAT TROP 0.099
[2017-08-06 16:41] VITALS: BP 103/63
--- NOTE | 2017-08-06 17:53 | NUR ---
WASHER OFF NOTE TROPONIN 0.189 DR CRUZ AWARE
--- NOTE | 2017-08-06 18:06 | NUR ---
CONE TREATER NOTE SPOKE WITH DR ANTHONY PAINTING TO ORDER SLIDING SCALE WITH INSULIN , PATIENT HAS HX DM , ORDER CARRIED OUT
[2017-08-06] MEDS ORDERED: DEXTROSE 50%-WATER 50 ML DISP.SYRIN IV PRN (18:30)
--- NOTE | 2017-08-06 18:59 | NUR ---
CENTRAL SUPPLY MANAGER NOTE ALL NEEDS ATTENDED ,NOT IN ACUTE DISTRESS
[2017-08-06 20:00] VITALS: BP 128/68
--- NOTE | 2017-08-06 20:40 | NUR ---
HYBRID TECHNOLOGIST INITIAL NOTE PT RECEIVED IN NO ACUTE DISTRESS AT THIS TIME. PT IS A/O X4 AND ABLE TO MAKE NEEDS KNOWN. BREATHING PATTERN IS NORMAL WITH ADEQUATE CHEST RISE/FALL. PT IS ON THE TELE WITH AFIB 90 CONTROLLED. F/C IS CLEAN DRY AND INTACT DRAINING URINE. THERE IS A RIGHT FA 20G THAT IS CLEAN DRY AND INTACT WELL. COMFORT AND SAFETY MEASURES TO BE PLACED FOR PT DURING THE SHIFT. WILL CONTINUE TO MONITOR FOR ANY CHANGES.
[2017-08-06] MEDS: ATORVASTATIN 10 MG TABLET PO SCH (21:40)
[2017-08-06] MEDS: BLOOD SUGAR DIAGNOSTIC 1 EACH STRIP IN SCH (21:41)
--- NOTE | 2017-08-06 21:53 | NUR ---
BS AT 2200 WAS 137. TO GIVE INSULIN COVERAGE.
[2017-08-06] MEDS: INSULIN REGULAR, HUMAN 100 UNIT/ML 3 ML VIAL SQ PRN (21:56)
[2017-08-07] VITALS: BP 93/42
[2017-08-07 04:00] VITALS: BP 135/45
[2017-08-07] MEDS: DILTIAZEM HCL 30 MG TABLET PO SCH ×3 (05:29→17:21)
--- NOTE | 2017-08-07 05:35 | NUR ---
LOT ASSOCIATE CLOSING NOTE PT REMAINS IN NO ACUTE DISTRESS AT THE END OF THE SHIFT. VITALS WNL. ALL DUE MEDICATIONS AND WOUND CARE DONE ORDERED. COMFORT AND SAFETY MEASURES CARRIED OUT THROUGHOUT THE SHIFT. WILL ENDORSE CARE TO AM NURSE.
[2017-08-07 07:34] LABS: BASOPHILS % (AUTO) 0.5 % (0.0-2.0); EOSINOPHILS # (AUTO) 0.2 /CMM (0.0-0.7); EOSINOPHILS % (AUTO) 3.2 % (0.0-6.0); HEMATOCRIT 32 % (33-45); HEMOGLOBIN 10.2 g/dL (11.5-14.8); LYMPHOCYTES # (AUTO) 1.8 /CMM (0.8-4.8); LYMPHOCYTES % (AUTO) 26.3 % (20.0-44.0); MEAN CORPUSCULAR HEMOGLOBIN 32 PG (26.0-33.0); MEAN CORPUSCULAR HGB CONC 32 g/dl (31.0-36.0); MEAN CORPUSCULAR VOLUME 98 fL (82-100); MONOCYTES # (AUTO) 0.7 /CMM (0.1-1.30); MONOCYTES % (AUTO) 10.5 % (2.0-12.0); NEUTROPHILS # (AUTO) 4.2 /CMM (1.8-8.9); NEUTROPHILS % (AUTO) 59.5 % (43.0-81.0); PLATELET COUNT (AUTO) 191 /CMM (150-450); RDW COEFFICIENT OF VARIATION 15.1 (11.5-15.0); RED BLOOD CELL COUNT(AUTO) 3.21 MIL/uL (4.0-5.2)
--- NOTE | 2017-08-07 07:38 | NUR ---
RN NOTES RECEIVED PT FROM PARENT AIDE IN STABLE CONDITION, ON ROOM AIR, A&0X3, NO SOB OR DISTRESS. A FIB ON THE TELE MONITOR HR 88. BURGER CATH DRAINING TO GRAVITY. R WRIST 20G IV SITE DRY AND INTACT, NO IVF. BED LOCKED AND IN LOWEST POSITION, SIDE RAILS UX3, CALL LIGHT WITHIN REACH, WILL CONT TO MONITOR.
[2017-08-07 07:59] LABS: CALCIUM, SERUM 8.3 mg/dL (8.5-10.1); CARBON DIOXIDE 27 mmol/L (21-32); CHLORIDE 105 mmol/L (98-107); CREATININE 1.4 mg/dL (0.6-1.3); GLUCOSE 118 mg/dL (74-106); MAGNESIUM 1.8 mg/dL (1.8-2.4); PHOSPHORUS 3.7 mg/dL (2.5-4.9); POTASSIUM 4.1 mmol/L (3.5-5.1); SODIUM SERUM 139 mmol/L (136-145); UREA NITROGEN, BLOOD 29 mg/dL (7-18)
[2017-08-07 08:00] VITALS: BP 140/61
[2017-08-07 08:30] LABS: CHOLESTEROL 96 mg/dL (<200); HDL CHOLESTEROL 43 mg/dL (40-60); LDL 47 mg/dL (0-99); TRIGLYCERIDES 67 mg/dL (30-150)
[2017-08-07] MEDS: BLOOD SUGAR DIAGNOSTIC 1 EACH STRIP IN SCH ×4 (09:09→21:11)
[2017-08-07] MEDS: METOPROLOL TARTRATE 25 MG TABLET PO SCH ×2 (09:10→21:12)
[2017-08-07] MEDS: LEVOTHYROXINE SODIUM 75 MCG TABLET PO SCH (09:10)
[2017-08-07] MEDS: SUCRALFATE 1 G TABLET PO SCH ×3 (09:11→17:21)
[2017-08-07] MEDS: FOLIC ACID 1 MG TABLET PO SCH (09:11)
[2017-08-07] MEDS ORDERED: HYDROGEL DRESSING 90 GM TUBE TP PRN (10:30)
[2017-08-07] MEDS ORDERED: HYDROGEL DRESSING 90 GM TUBE TP SCH (10:30)
--- NOTE | 2017-08-07 10:31 | NUR ---
WOUND CARE CONSULT: PT PRESENTS WITH STAGE 2 ULCER TO SACRAL AREA, PRESENT ON ADMISSION WELL RASH TO BUTTOCKS WITH PEELING SKIN. BARIMAX BED WITH ETS AIR ORDERED. PT TO BE TURNED AND REPOSITIONED EVERY 2 HRS PT CONDITION PERMITS, HEELS FLOATED. ALL SKIN PROTECTION MEASURES IN PLACE AND DISCUSSED WITH NURSING STAFF. WILL SEE PRN. ANN IN AGREEMENT WITH PLAN OF CARE. Addendum: 08/07/17 at 1032 by DELBERT STAFFORD WNDNU Amended: Links added.
[2017-08-07] MEDS: CLOTRIMAZOLE 1% 15 GM TUBE TP SCH ×2 (11:26→17:22)
[2017-08-07] MEDS: INSULIN REGULAR, HUMAN 100 UNIT/ML 3 ML VIAL SQ PRN ×2 (11:45→16:34)
[2017-08-07 12:00] VITALS: BP 109/67
[2017-08-07] MEDS: HYDROCODONE/APAP 5/325MG 1 EACH TABLET PO PRN ×2 (13:02→21:22)
[2017-08-07] MEDS ORDERED: VITAMINS A AND D 56.7 GM TUBE TP PRN (14:00)
[2017-08-07 16:00] VITALS: BP 116/58
--- NOTE | 2017-08-07 18:28 | NUR ---
RN NOTES PT RESTING IN BED ON RA NO SOB OR DISTRESS NOTED. NO SIGNIFICANT CHANGES THROUGHOUT THE SHIFT, REMAINED IN STABLE CONDITION. VITAL SIGNS STABLE, ALL NEEDS MET. BED LOCKED AND IN LOWEST POSITION, SIDE RAILS UPX3, CALL LIGHT WITHIN REACH WILL ENDORSE TO ONCOMING SHIFT.
[2017-08-07 20:00] VITALS: BP_SYST 119; BP_DIAS 47; BP_DIAS 50
--- NOTE | 2017-08-07 20:09 | NUR ---
RN INITIAL MS NOTES RECEIVED PT FROM AM SHIFT IN STABLE CONDITION, ON ROOM AIR, A&0X3, NO SOB OR DISTRESS. A FIB ON THE TELE MONITOR HR 89. BURGER CATH DRAINING TO GRAVITY. R WRIST 20G IV SITE DRY AND INTACT, NO IVF. BED LOCKED AND IN LOWEST POSITION, SIDE RAILS UX3, CALL LIGHT WITHIN REACH, WILL CONT TO MONITOR.
[2017-08-07] MEDS: ATORVASTATIN 10 MG TABLET PO SCH (21:11)
--- NOTE | 2017-08-07 21:40 | NUR ---
PT REFUSED MIRALAX NOT GIVEN D/T PT C/O OF BOUTS OF LOOSE STOOL.
[2017-08-07] MEDS ORDERED: POLYETHYLENE GLYCOL 3350 17 GM POWD.PACK PO SCH (22:00)
[2017-08-08] VITALS: BP 106/58
--- NOTE | 2017-08-08 00:05 | NUR ---
0000 CARDIZEM 30 MG HELD FOR SBP 106/58 81, WILL CONT TO MONITOR
[2017-08-08 04:00] VITALS: BP 112/53
[2017-08-08] MEDS: DILTIAZEM HCL 30 MG TABLET PO SCH ×3 (05:56→12:27)
--- NOTE | 2017-08-08 06:18 | NUR ---
RN CLOSING MS NOTES ENDORSED PT TO AM SHIFT IN STABLE CONDITION, ON ROOM AIR, A&0X3, NO SOB OR DISTRESS. A FIB ON THE TELE MONITOR HR 84. BURGER CATH DRAINING TO GRAVITY. R WRIST 20G IV SITE DRY AND INTACT, NO IVF. BED LOCKED AND IN LOWEST POSITION, SIDE RAILS UX3, CALL LIGHT WITHIN REACH, WILL CONT TO MONITOR.
[2017-08-08] MEDS: BLOOD SUGAR DIAGNOSTIC 1 EACH STRIP IN SCH ×2 (06:35→12:17)
--- NOTE | 2017-08-08 07:10 | NUR ---
RN INITIAL NOTES: REC'D PT AWAKE ON BED, NOT IN ANY DISTRESS, A/OX 3, ABLE TO MAKE NEEDS KNOWN, DENIES ANY PAIN/DISCOMFORT. HAS R WRIST G20, SL, FLUSHED, PATENT & INTACT W/ NO S/SX OF INFECTION/INFILTRATION NOTED. HAS FC PATENT & INTACT DRAINING TO ADEQUATE URINE OUTPUT. PROVIDED COMFORT & SAFETY MEASURES. BED KEPT LOW & IN LOCKED POS. CALL LIGHT PLACED W/IN REACH. WILL CONTINUE TO MONITOR AND ATTEND PT'S NEEDS.
[2017-08-08 07:54] LABS: BASOPHILS % (AUTO) 0.7 % (0.0-2.0); EOSINOPHILS # (AUTO) 0.4 /CMM (0.0-0.7); EOSINOPHILS % (AUTO) 6.4 % (0.0-6.0); HEMATOCRIT 35 % (33-45); HEMOGLOBIN 11.1 g/dL (11.5-14.8); LYMPHOCYTES # (AUTO) 1.6 /CMM (0.8-4.8); LYMPHOCYTES % (AUTO) 28.6 % (20.0-44.0); MEAN CORPUSCULAR HEMOGLOBIN 32 PG (26.0-33.0); MEAN CORPUSCULAR HGB CONC 32 g/dl (31.0-36.0); MEAN CORPUSCULAR VOLUME 98 fL (82-100); MONOCYTES # (AUTO) 0.6 /CMM (0.1-1.30); NEUTROPHILS # (AUTO) 3.1 /CMM (1.8-8.9); NEUTROPHILS % (AUTO) 54.3 % (43.0-81.0); PLATELET COUNT (AUTO) 183 /CMM (150-450); RDW COEFFICIENT OF VARIATION 15.3 (11.5-15.0); RED BLOOD CELL COUNT(AUTO) 3.51 MIL/uL (4.0-5.2); WHITE BLOOD COUNT (AUTO) 5.8 K/uL (4.3-11.0)
[2017-08-08 08:00] VITALS: BP 108/56
[2017-08-08 08:07] LABS: CALCIUM, SERUM 8.4 mg/dL (8.5-10.1); CARBON DIOXIDE 29 mmol/L (21-32); CHLORIDE 106 mmol/L (98-107); CREATININE 1.3 mg/dL (0.6-1.3); GLUCOSE 103 mg/dL (74-106); MAGNESIUM 1.8 mg/dL (1.8-2.4); PHOSPHORUS 3.6 mg/dL (2.5-4.9); POTASSIUM 4.3 mmol/L (3.5-5.1); SODIUM SERUM 140 mmol/L (136-145); UREA NITROGEN, BLOOD 29 mg/dL (7-18)
[2017-08-08] MEDS: METOPROLOL TARTRATE 25 MG TABLET PO SCH (09:00)
[2017-08-08] MEDS: LEVOTHYROXINE SODIUM 75 MCG TABLET PO SCH (09:00)
[2017-08-08] MEDS: FOLIC ACID 1 MG TABLET PO SCH (09:00)
[2017-08-08] MEDS: SUCRALFATE 1 G TABLET PO SCH ×2 (09:01→12:27)
[2017-08-08] MEDS: CLOTRIMAZOLE 1% 15 GM TUBE TP SCH (09:02)
--- NOTE | 2017-08-08 11:09 | NUR ---
RN NOTES: PT SEEN & EXAMINED BY DR. MAE. PER , PT MAY DC BACK TO SNF.
[2017-08-08 12:27] VITALS: BP 128/68
[2017-08-08] MEDS: INSULIN REGULAR, HUMAN 100 UNIT/ML 3 ML VIAL SQ PRN (12:29)
[2017-08-08] MEDS: HYDROCODONE/APAP 5/325MG 1 EACH TABLET PO PRN ×2 (14:24→14:26)
--- NOTE | 2017-08-08 15:40 | NUR ---
COORDINATOR HOTELS NOTES: PT DC'D TO [facility] ORDERED. DC DOCUMENTS SIGNED BY PT AND GIVEN TO THE PARAMEDICS. ALL BELONGINGS CHECKED BY PULL TAB DEALER AND SENT W/ THE PT. BELONGINGS LIST SIGNED BY THE PT. REPORT GIVEN TO VJ DAIGLE AT [facility]. IV ACCESS REMOVED, PRESSURE DRESSING APPLIED, NO SIGN OF INFECTION NOTED. FC REMOVED ORDERED BY . PT WAS ABLE TO URINATE PRIOR TO DC. PT LEFT FACILITY IN STABLE CONDITION VIA GURNEY ACCOMPANIED BY PRIMER WATERPROOFING MACHINE ADJUSTER. NO CONCERNS IDENTIFIED AT THIS TIME. FAMILY IS AWARE OF THE TRANSFER. Addendum: 08/08/17 at 1728 by ELLIS HERNÁNDEZ RN ADDENDUM: WOUND CARE DONE AND WOUND PHOTOS TAKEN PRIOR TO DC AND PLACED IN CHART.
[2017-09-05] MEDS ORDERED: FURO-145 PO (11:42)
[2017-09-05] MEDS ORDERED: LEVO500T15 PO (11:42)
[2017-09-05] MEDS ORDERED: Digoxin PO (11:42)
[2017-09-05] MEDS ORDERED: RIVA10TA PO (11:42)
[2017-09-05] MEDS ORDERED: PRED20TA PO (11:42)
== END 2017-08-08 15:31 | DRG 377 ==
LOC: ER 08:12 → TELE 10:00 → TELE-TD 11:11 → TELE1 13:29 → MEDSG1 08-07 17:27
PROVIDERS: ADMIT Internal Medicine; ATTEND Internal Medicine
DX: K92.2 Gastrointestinal hemorrhage, unspecified (principal); I21.A1 Myocardial infarction type 2; E46 Unspecified protein-calorie malnutrition; D69.2 Other nonthrombocytopenic purpura; I48.0 Paroxysmal atrial fibrillation; E11.22 Type 2 diabetes mellitus with diabetic chronic kidney disease; E66.01 Morbid (severe) obesity due to excess calories; I48.91 Unspecified atrial fibrillation; I50.32 Chronic diastolic (congestive) heart failure; I13.0 Hypertensive heart and chronic kidney disease with heart failure and stage 1 through stage 4 chronic kidney disease, or unspecified chronic kidney disease; L89.621 Pressure ulcer of left heel, stage 1; D63.8 Anemia in other chronic diseases classified elsewhere; E78.5 Hyperlipidemia, unspecified; I25.10 Atherosclerotic heart disease of native coronary artery without angina pectoris; N18.9 Chronic kidney disease, unspecified; K21.9 Gastro-esophageal reflux disease without esophagitis; E03.9 Hypothyroidism, unspecified; Z79.01 Long term (current) use of anticoagulants; K59.09 Other constipation; Z68.38 Body mass index [BMI] 38.0-38.9, adult; Z88.2 Allergy status to sulfonamides; L89.611 Pressure ulcer of right heel, stage 1; I87.8 Other specified disorders of veins; L98.8 Other specified disorders of the skin and subcutaneous tissue
CPT/HCPCS: 36415; 71010-TC; 80048-TC; 80061-TC; 80076-TC; 81000-TC; 82962-TC; 83690-TC; 83735-TC; 84100-TC; 84484-TC; 85025-TC; 85730-TC; 86850-TC; 87081-TC; 87086-TC; A4606; A6248; J1815; J2270; J2405; J3490; J7030; Z7610

== ENCOUNTER 2017-09-02 16:21 | Inpatient (IN) | payer MEDICARE, MEDICAID ==
[~2017-09-02] VITALS: Ht 172.7 cm; Wt 115.2 kg
[~2017-09-02 16:21] MED LIST changes: -APIX5TAB PO; +DEXT15DR6 EACHEYE; +MELA3TAB PO; -SIME120L PO; +SIME80TA15 PO
--- NOTE | 2017-09-02 16:30 | NUR ---
BBRA FROM [facility] FOR WORSENING SOB. PATIENT ALSO C/O LOOSE STOOLS. A/OX 4. BREATHING EVEN AND UNLABORED, BILATERAL WHEEZING. VITALS STABLE. SAFETY AND COMFORT MEASURES IN PLACE. AWAITING MD ORDERS.
--- NOTE | 2017-09-02 17:00 | NUR ---
NEW IV STARTED ON LEFT HAND, 20 G.
[2017-09-02 17:15] LABS: ABG BASE EXCESS 7.9 mmol/L; ABG OXYGEN SATURATION 94.1 % (92.0-98.5); ABG PCO2 57.3 mmHg (35.0-45.0); ABG PH 7.395 (7.350-7.450); ABG PO2 72.5 mmHg (75.0-100.0); AaDO2 59.5 mmHg; COHb 0.3 % (0.5-1.5); MetHb 0.5 % (0.0-1.5); O2Hb 93.3 % (94.0-97.0); SITE, ABG Right Radial; VENT MODE, BG N/C
[2017-09-02] MEDS ORDERED: ALBUTEROL FS 2.5 MG/0.5 ML VIAL.NEB ONE (17:25)
[2017-09-02] MEDS ORDERED: IPRATROPIUM NEB FS 0.5 MG/2.5 ML AMPUL.NEB ONE (17:25)
[2017-09-02] MEDS ORDERED: ALBUTEROL FS 2.5 MG/3 ML VIAL.NEB CONTNEB ONE (17:30)
[2017-09-02] MEDS ORDERED: IPRATROPIUM NEB FS 0.5 MG/2.5 ML AMPUL.NEB NEB ONE (17:30)
[2017-09-02 17:31] LABS: BASOPHILS # (AUTO) 0.2 /CMM (0.0-0.2); BASOPHILS % (AUTO) 2.2 % (0.0-2.0); EOSINOPHILS # (AUTO) 0.2 /CMM (0.0-0.7); EOSINOPHILS % (AUTO) 2.9 % (0.0-6.0); HEMATOCRIT 30 % (33-45); LYMPHOCYTES # (AUTO) 1.3 /CMM (0.8-4.8); LYMPHOCYTES % (AUTO) 17.3 % (20.0-44.0); MEAN CORPUSCULAR HEMOGLOBIN 32 PG (26.0-33.0); MEAN CORPUSCULAR HGB CONC 33 g/dl (31.0-36.0); MEAN CORPUSCULAR VOLUME 95 fL (82-100); MONOCYTES # (AUTO) 0.7 /CMM (0.1-1.30); NEUTROPHILS % (AUTO) 67.6 % (43.0-81.0); PLATELET COUNT (AUTO) 259 /CMM (150-450); RDW COEFFICIENT OF VARIATION 14.5 (11.5-15.0); RED BLOOD CELL COUNT(AUTO) 3.18 MIL/uL (4.0-5.2); WHITE BLOOD COUNT (AUTO) 7.4 K/uL (4.3-11.0)
--- NOTE | 2017-09-02 17:38 | NUR ---
INSERT CONROY CATH PER DR. RIZZO. 16 FR conroy catheter inserted per sterile protocOl. Immediate output 60 ML of urine, color yellow, clarity cloudy.
[2017-09-02 17:49] LABS: INR 1.05 (0.87-1.13); PROTHROMBIN TIME 10.9 SECS (9.5-12.7)
[2017-09-02 17:51] LABS: CALCIUM, SERUM 8.8 mg/dL (8.5-10.1); CARBON DIOXIDE 33 mmol/L (21-32); CHLORIDE 104 mmol/L (98-107); CREATININE 1.2 mg/dL (0.6-1.3); GLUCOSE 167 mg/dL (74-106); POTASSIUM 4.8 mmol/L (3.5-5.1); SODIUM SERUM 142 mmol/L (136-145); UREA NITROGEN, BLOOD 22 mg/dL (7-18)
[2017-09-02 17:57] LABS: APPEARANCE,URINE CLOUDY (CLEAR); BILIRUBIN,URINE NEGATIVE (NEGATIVE); BLOOD, URINE 2+ Ery/uL (NEGATIVE); COLOR,URINE YELLOW (YELLOW); KETONES,URINE NEGATIVE (NEGATIVE); LEUKOCYTE ESTERASE ,URINE 3+ (NEGATIVE); NITRITE, URINE POSITIVE (NEGATIVE); PROTEIN,URINE 1+ mg/dl (NEGATIVE); UGLUCOSE NEGATIVE (NEGATIVE); UROBILINOGEN,URINE 0.2 EU/dL (0.2)
[2017-09-02 17:58] LABS: TROPONIN I 0.043 ng/mL (0.00-0.056)
[2017-09-02] MEDS ORDERED: AZITHROMYCIN 500 MG in IV D5W 250 ML IV ONE ×2 (18:00→18:30)
[2017-09-02] MEDS ORDERED: CEFTRIAXONE 1 G in IV D5W 50 ML IV ONE (18:00)
[2017-09-02 18:05] LABS: ALANINE AMINOTRANSFERASE 19 U/L (12-78); ALBUMIN 2.4 g/dL (3.4-5.0); ALKALINE PHOSPHATASE 92 U/L (46-116); ASPARTATE AMINOTRANSFERASE 24 U/L (15-37); BILIRUBIN,DIRECT 0.1 mg/dL (0.0-0.2); BILIRUBIN,TOTAL 0.3 mg/dL (0.2-1.0); TOTAL PROTEIN, SERUM 6.4 g/dL (6.4-8.2)
[2017-09-02 18:15] LABS: BACTERIA,URINE Many /HPF (None Seen)
[2017-09-02 18:16] LABS: SQUAMOUS EPITHELIAL CELL,UR Few /HPF (None Seen); WBC,URINE 51-80 /HPF (0-3)
--- NOTE | 2017-09-02 18:18 | NUR ---
REPORT GIVEN TO BOLIVAR FOR DUTCH.
[2017-09-02] MEDS ORDERED: CEFTRIAXONE 1GM BAG (ER ONLY) 50 ML IV ONE (18:28)
[2017-09-02] MEDS ORDERED: ONDANSETRON HCL/PF 4 MG/2 ML VIAL IVP PRN (18:30)
[2017-09-02] MEDS ORDERED: MAG HYDROX/AL HYDROX/SIMETH 30 ML UDC PO PRN (18:30)
[2017-09-02] MEDS ORDERED: CLONIDINE HCL 0.1 MG TABLET PO PRN (18:30)
[2017-09-02] MEDS ORDERED: MAGNESIUM HYDROXIDE 30 ML UDC PO PRN ×2 (18:30)
[2017-09-02] MEDS ORDERED: ALBUTEROL FS 2.5 MG/3 ML VIAL.NEB NEB PRN (18:30)
[2017-09-02] MEDS ORDERED: HYDROCODONE/APAP 5/325MG 1 EACH TABLET PO PRN (18:30)
[2017-09-02] MEDS ORDERED: NA PHOS,M-B/NA PHOS,DI-BA 1 EA ENEMA RC PRN (18:30)
[2017-09-02] MEDS ORDERED: POLYVINYL ALCOHOL 15 ML BOTTLE EACHEYE PRN (18:30)
[2017-09-02] MEDS ORDERED: BISACODYL SUPP (10 MG) 10 MG/SUPP.RECT SUPP.RECT RC PRN (18:30)
[2017-09-02] MEDS ORDERED: Z GUARD REMEDY 2 OZ OINT TP PRN (18:30)
[2017-09-02] MEDS ORDERED: methylPREDNISolone SOD SUCC 125 MG/2ML VIAL IV ONE (18:30)
[2017-09-02] MEDS ORDERED: ACETAMINOPHEN 325 MG TABLET PO PRN (18:30)
--- NOTE | 2017-09-02 19:37 | NUR ---
REPORT TO VJ MANLEY
--- NOTE | 2017-09-02 20:30 | NUR ---
BROADCAST CORRESPONDENT NOTE: RECEIVE PATIENT FROM ER, NO ACUTE DISTRESS NOTED. BREATHING EVEN AND UNLABORED, NO SOB NOTED. OXYGEN VIA NC IN PLACE AT 2 LPM. IV TO LEFT HAND IN PLACE. BURGER CATHETER IN PLACE, DRAINING CLEAR YELLOW URINE. ORIENTED PATIENT TO ROOM AND USE OF CALL LIGHT. BED LOCKED AND IN LOWEST POSITION, CALL LIGHT IN REACH. WILL CONTINUE TO MONITOR.
[2017-09-02 21:00] VITALS: BP 106/52
[2017-09-02] MEDS ORDERED: methylPREDNISolone SOD SUCC 125 MG/2ML VIAL ONE (21:33)
[2017-09-02] MEDS: FUROSEMIDE 40 MG/4 ML VIAL IV SCH (21:40)
[2017-09-02] MEDS ORDERED: Medication Not On Formulary EA (Melatonin 3 MG) PO SCH (22:00)
[2017-09-03] VITALS: BP 111/65
[2017-09-03] MEDS ORDERED: methylPREDNISolone SOD SUCC 40 MG/ML VIAL IV SCH
--- NOTE | 2017-09-03 01:00 | NUR ---
COMPUTER LABORATORY TECHNICIAN NOTE: PATIENT TELE READING UNCONTROLLED A-FIB WITH HR FROM 100 TO 130. PATIENT DENIES ANY CHEST PAIN OR DISCOMFORT. SPOKE TO WASH OIL PUMP OPERATOR HELPER ROSELINE ANN, NOHEMI, RECEIVED ORDERS FOR LOVENOX 1MG/KG, TO GIVE LOVENOX 100MG SQ TWICE A DAY. ALSO RECEIVE ORDERS FOR DIGOXIN 0.25MG IV ONCE AND THEN ANOTHER DOSE OF DIGOXIN 0.125MG IV AFTER FIRST DOSE GIVEN. THEN TO HAVE DIGOXIN 01.25 MG DAILY. DIGOXIN LEVEL TO ALSO BE CHECKED WITH MORNING LABS. ORDERS NOTED AND CARRIED OUT. WILL CONTINUE TO MONITOR.
[2017-09-03] MEDS ORDERED: DIGOXIN INJ 0.5 MG/2 ML AMPUL IV ONE ×2 (01:30→05:30)
[2017-09-03] MEDS ORDERED: ENOXAPARIN SODIUM 100 MG/ML DISP.SYRIN SQ ONE (01:58)
[2017-09-03] MEDS ORDERED: DIGOXIN INJ 0.5 MG/2 ML AMPUL ONE ×2 (01:59→05:50)
[2017-09-03] MEDS: ENOXAPARIN SODIUM 100 MG/ML DISP.SYRIN SQ SCH ×2 (02:05→09:43)
--- NOTE | 2017-09-03 03:15 | NUR ---
KETTLE LOADER NOTE: PATIENT RECEIVED SOLUMEDROL 40MG IV AT 0307, LAST DOSE WAS GIVEN AT 2140 AND ORDERED FOR EVERY 6 HOURS. NEXT DOSE TO BE GIVEN AT 0900, TO CALL PHARMACY IN MORNING TO ADJUST SCHEDULE TIME. WILL CONTINUE TO MONITOR.
[2017-09-03 04:00] VITALS: BP 134/76
--- NOTE | 2017-09-03 06:30 | NUR ---
ESCALATOR MECHANIC NOTE: PATIENT RESTING IN BED, NO ACUTE DISTRESS NOTED. BREATHING EVEN AND UNLABORED, NO SOB NOTED. OXYGEN VIA NC IN PLACE AT 2 LPM. IV TO LEFT HAND IN PLACE. BURGER CATHETER IN PLACE. TELE READING A-FIB UNCONTROLLED WITH HR FROM 100-140. DIGOXIN 0.125MG IV GIVEN PER MD ORDER. ORDER IN CHART FOR US GUIDED THORACENTESIS, CONSENT SIGNED AND IN CHART. BED LOCKED AND IN LOWEST POSITION, CALL LIGHT IN REACH. WILL ENDORSE TO DAY NURSE TO CONTINUE WITH PLAN OF CARE.
[2017-09-03 07:08] LABS: CALCIUM, SERUM 8.8 mg/dL (8.5-10.1); CARBON DIOXIDE 27 mmol/L (21-32); CHLORIDE 101 mmol/L (98-107); GLUCOSE 218 mg/dL (74-106); POTASSIUM 5.3 mmol/L (3.5-5.1); SODIUM SERUM 136 mmol/L (136-145); UREA NITROGEN, BLOOD 21 mg/dL (7-18)
[2017-09-03] MEDS: PANTOPRAZOLE 40 MG TABLET.DR PO SCH (07:30)
[2017-09-03] MEDS: LEVOTHYROXINE SODIUM 75 MCG TABLET PO SCH (07:30)
[2017-09-03 08:00] VITALS: BP 135/76
--- NOTE | 2017-09-03 08:15 | NUR ---
RN NOTES RECEIVED PT. PT IS STABLE AND SLEEPING IN BED. NO S/S OF RESPIRATORY DISTRESS OR PAIN. A/OX4. PT IS ON TELE MONITOR SHOWING AFIB AT 100-140. IV ACCESS ON LEFT HAND 20 G SALINE LOCKED. BURGER CATHETER IN PLACE AND PATENT. SAFETY MEASURES IN PLACE, CALL LIGHT WITHIN REACH. WILL CONTINUE TO MONITOR.
[2017-09-03] MEDS: CHOLECALCIFEROL 1,000 UNIT TABLET (VIT D3) PO SCH (09:00)
[2017-09-03] MEDS: ASCORBIC ACID 500 MG TABLET PO SCH (09:00)
[2017-09-03] MEDS: SUCRALFATE 1 G TABLET PO SCH ×3 (09:00→17:00)
[2017-09-03] MEDS: FOLIC ACID 1 MG TABLET PO SCH (09:00)
[2017-09-03] MEDS: MULTIVIT, IRON, MIN NO. 8, FA 1 TAB PO SCH (09:00)
--- NOTE | 2017-09-03 09:30 | NUR ---
RN NOTES ROCEPHIN NOT AVAILABLE IN CASSETTE. PHARMACY CONTACTED FOR MEDICATION. AWAITING ARRIVAL FOR ADMINISTRATION.
[2017-09-03] MEDS: methylPREDNISolone SOD SUCC 40 MG/ML VIAL IV SCH ×2 (09:39→17:43)
[2017-09-03] MEDS: FUROSEMIDE 40 MG/4 ML VIAL IV SCH (09:39)
--- NOTE | 2017-09-03 10:13 | NUR ---
THORACENTESIS ON HOLD PATIENT WAS GIVEN LOVENOX TODAY AY 0900. VJ HOLDER AWARE TO HOLD 1 DOSE 12 HRS BEFORE PROCEDURE. WILL BE DONE TOMORROW
[2017-09-03] MEDS: CEFTRIAXONE 1 G in IV D5W 50 ML IV SCH (11:07)
[2017-09-03 11:13] LABS: THYROID STIMULATING HORMONE 0.43 uIU/mL (0.358-3.74)
[2017-09-03 12:00] VITALS: BP 125/78
[2017-09-03] MEDS ORDERED: DARBEPOETIN ALFA IN POLYSORBAT 60 MCG SQ SCH (12:00)
[2017-09-03 12:18] LABS: EOSINOPHILS % (AUTO) 0.1 % (0.0-6.0); HEMATOCRIT 33 % (33-45); HEMOGLOBIN 10.8 g/dL (11.5-14.8); LYMPHOCYTES # (AUTO) 0.5 /CMM (0.8-4.8); LYMPHOCYTES % (AUTO) 10.7 % (20.0-44.0); MEAN CORPUSCULAR HEMOGLOBIN 32 PG (26.0-33.0); MEAN CORPUSCULAR HGB CONC 33 g/dl (31.0-36.0); MEAN CORPUSCULAR VOLUME 97 fL (82-100); MONOCYTES % (AUTO) 0.4 % (2.0-12.0); NEUTROPHILS # (AUTO) 3.9 /CMM (1.8-8.9); NEUTROPHILS % (AUTO) 88.8 % (43.0-81.0); PLATELET COUNT (AUTO) 219 /CMM (150-450); RDW COEFFICIENT OF VARIATION 15.6 (11.5-15.0); RED BLOOD CELL COUNT(AUTO) 3.41 MIL/uL (4.0-5.2); WHITE BLOOD COUNT (AUTO) 4.4 K/uL (4.3-11.0)
--- NOTE | 2017-09-03 12:24 | NUR ---
WOUND CARE CONSULT: PT PRESENTS WITH EDEMA (3+ PITTING TO LOWER LEGS) AND NONPITTING EDEMA TO THIGHS. RASH NOTED TO BUTTOCKS AND PERINEUM, PRESENT ON ADMISSION WITH SKIN STAINING. RECOMMENDATIONS MADE FOR SKIN PROTECTION AND CARE. DISCUSSED WITH NURSING STAFF. PT ON HERB ISOFLEX LOW AIRLOSS BED. ALL SKIN PROTECTION MEASURES IN PLACE. PT STATES CAN ONLY TOLERATE LIQUID DIET. WILL SEE PRN. ANN IN AGREEMENT WITH PLAN OF CARE. Addendum: 09/03/17 at 1227 by DELBERT STAFFORD WNDNU Amended: Links added.
[2017-09-03] MEDS ORDERED: DIGOXIN INJ 0.5 MG/2 ML AMPUL IV SCH (13:00)
--- NOTE | 2017-09-03 13:31 | NUR ---
RN NOTES AM PO MEDICATIONS HELD. PT WAS KEPT ON NPO STATUS FOR POSSIBLE CARDIAC CONSULT. NPO STATUS DISCONTINUED.
[2017-09-03 16:00] VITALS: BP 142/79
[2017-09-03] MEDS: CLOTRIMAZOLE 1% 15 GM TUBE TP SCH (17:00)
--- NOTE | 2017-09-03 17:11 | NUR ---
RN NOTES AWAITING LOTRIMIN CREAM FROM PHARMACY, NON-ADMINED ON EMAR FOR NOW. SUCRAFATE REFUSED BY PT, PT DOES NOT BELIEVE SHE WILL BE ABLE TO AVOID N/V IF TAKING THE PO MEDICATION.
--- NOTE | 2017-09-03 18:48 | NUR ---
RN NOTES PT IN BED RESTING. NO S/S OF DISTRESS OR SOB. PT DOES NOT APPEAR TO BE IN PAIN. PT SCHEDULED FOR ULTRASOUND GUIDED THORACENTESIS, CONSENT SIGNED AND COMPLETED. SAFETY MEASURES IN PLACE. CALL LIGHT WITHIN REACH. WILL ENDORSE TO SPECIAL OFFICER FOR DUTCH.
[2017-09-03 20:00] VITALS: BP 158/90
--- NOTE | 2017-09-03 20:00 | NUR ---
RN NOTES RECEIVED PATIENT IN BED, ALERT AND ORIENTED X3, CALM, ABLE TO VERBALIZE NEEDS, TOLERATING 2 LPM VIA NC, SPO2 93%, DENIES ANY PAIN AT THIS TIME, LEFT HAND SALINE LOCK IS PATENT AND SECURED WITH DRESSING, BURGER CATHETER IS DRAINING WELL WITH YELLOW URINE. ON TELE WITH A-FIB UNCONTROLLED, KEPT HOB ELEVATED, NEEDS ATTENDED, CALL LIGHT WITHIN REACH.
[2017-09-03] MEDS: ZOLPIDEM TARTRATE 5 MG TABLET PO PRN (21:19)
[2017-09-03] MEDS: ATORVASTATIN 10 MG TABLET PO SCH (21:19)
[2017-09-04] VITALS: BP 132/73
[2017-09-04] MEDS: methylPREDNISolone SOD SUCC 40 MG/ML VIAL IV SCH ×4 (00:01→22:18)
[2017-09-04] MEDS ORDERED: SIMETHICONE 80 MG TAB.CHEW ONE (02:18)
--- NOTE | 2017-09-04 02:18 | NUR ---
RN NOTES PATIENT COMPLAINING OF GAS, NOTIFIED DR. BADILLO. NEW ORDER OF SIMETHICONE 80 MG PO QID. ORDER NOTED AND CARRIED OUT.
[2017-09-04] MEDS: SIMETHICONE 80 MG TAB.CHEW PO PRN ×2 (02:21→21:12)
[2017-09-04 04:00] VITALS: BP 155/82
--- NOTE | 2017-09-04 06:50 | NUR ---
RN NOTES PATIENT IN BED, ALERT AND AWAKE, NO SOB, TOLERATING 2LPM VIA NC, SPO2 95%, NO EPISODE OF SOB DURING SHIFT, SLEPT FOR 5 HOURS. ALL DUE MEDICATIONS GIVEN, CALL LIGHT WITHIN REACH.
--- NOTE | 2017-09-04 07:20 | NUR ---
REGISTERED NURSE CARDIAC NOTES PATIENT ASLEEP BUT EASILY AROUSABLE, NO S/SX OF RESPIRATORY DISTRESS, NO IV FLUIDS ORDERED AT THIS TIME, ALL NEEDS ATTENDED AND ANTICIPATED, SAFETY MEASURES IN PLACED, CALL LIGHT WITHIN REACH, WILL CONTINUE TO MONITOR.
[2017-09-04 08:08] LABS: BASOPHILS % (AUTO) 0.1 % (0.0-2.0); HEMATOCRIT 32 % (33-45); HEMOGLOBIN 10.3 g/dL (11.5-14.8); LYMPHOCYTES # (AUTO) 0.4 /CMM (0.8-4.8); MEAN CORPUSCULAR HEMOGLOBIN 31 PG (26.0-33.0); MEAN CORPUSCULAR HGB CONC 32 g/dl (31.0-36.0); MEAN CORPUSCULAR VOLUME 97 fL (82-100); MONOCYTES # (AUTO) 0.1 /CMM (0.1-1.30); MONOCYTES % (AUTO) 2.1 % (2.0-12.0); NEUTROPHILS % (AUTO) 89.8 % (43.0-81.0); PLATELET COUNT (AUTO) 232 /CMM (150-450); RDW COEFFICIENT OF VARIATION 15.2 (11.5-15.0); WHITE BLOOD COUNT (AUTO) 5.5 K/uL (4.3-11.0)
[2017-09-04 08:22] LABS: ALANINE AMINOTRANSFERASE 15 U/L (12-78); ALBUMIN 2.5 g/dL (3.4-5.0); ALKALINE PHOSPHATASE 84 U/L (46-116); ASPARTATE AMINOTRANSFERASE 22 U/L (15-37); BILIRUBIN,TOTAL 0.2 mg/dL (0.2-1.0); CARBON DIOXIDE 30 mmol/L (21-32); CHLORIDE 103 mmol/L (98-107); CREATININE 1.1 mg/dL (0.6-1.3); GLUCOSE 231 mg/dL (74-106); PHOSPHORUS 4.5 mg/dL (2.5-4.9); POTASSIUM 4.9 mmol/L (3.5-5.1); SODIUM SERUM 140 mmol/L (136-145); TOTAL PROTEIN, SERUM 6.5 g/dL (6.4-8.2); UREA NITROGEN, BLOOD 25 mg/dL (7-18)
[2017-09-04] MEDS: CEFTRIAXONE 1 G in IV D5W 50 ML IV SCH (08:35)
[2017-09-04] MEDS: CHOLECALCIFEROL 1,000 UNIT TABLET (VIT D3) PO SCH (08:38)
[2017-09-04] MEDS: MULTIVIT, IRON, MIN NO. 8, FA 1 TAB PO SCH (08:38)
[2017-09-04] MEDS: SUCRALFATE 1 G TABLET PO SCH ×3 (08:39→17:52)
[2017-09-04] MEDS: PANTOPRAZOLE 40 MG TABLET.DR PO SCH (08:39)
[2017-09-04] MEDS: LEVOTHYROXINE SODIUM 75 MCG TABLET PO SCH (08:39)
[2017-09-04] MEDS: FUROSEMIDE 40 MG/4 ML VIAL IV SCH (08:39)
[2017-09-04] MEDS: ASCORBIC ACID 500 MG TABLET PO SCH (08:39)
[2017-09-04] MEDS: FOLIC ACID 1 MG TABLET PO SCH (08:39)
[2017-09-04] MEDS: DILTIAZEM HCL CD 240 MG PO SCH (09:31)
[2017-09-04] MEDS: CLOTRIMAZOLE 1% 15 GM TUBE TP SCH ×2 (09:33→17:52)
--- NOTE | 2017-09-04 11:22 | NUR ---
SALESPERSON BURIAL PLOTS NOTES CALLED [facility] FOR ARANESP, PER RN THEY ARE UNABLE TO PROVIDE ARANESP. MEDICATION IS UNABLE FROM OUR PHARMACY. DR. MORALES AWARE, PER MD, HOLD MEDICATION FOR TODAY, HGB IS 10.3. ORDER NOTED AND CARRIED OUT.
[2017-09-04] MEDS ORDERED: DEXTROSE 50%-WATER 50 ML DISP.SYRIN IV PRN (11:30)
[2017-09-04] MEDS: BLOOD SUGAR DIAGNOSTIC 1 EACH STRIP IN SCH ×3 (12:00→22:35)
[2017-09-04] MEDS: INSULIN REGULAR, HUMAN 100 UNIT/ML 3 ML VIAL SQ PRN ×3 (13:09→22:41)
--- NOTE | 2017-09-04 13:09 | NUR ---
CHILDREN COUNSELOR NOTES PATIENT'S INSULIN HELD, D/T PATIENT'S POOR APPETITE. PER PATIENT SHE DOESN'T FEEL LIKE EATING.
[2017-09-04] MEDS: DIGOXIN 0.25 MG TABLET PO SCH (13:52)
[2017-09-04 13:54] LABS: ABG OXYGEN SATURATION 93.8 % (92.0-98.5); ABG PCO2 59.6 mmHg (35.0-45.0); ABG PH 7.371 (7.350-7.450); ABG PO2 74.9 mmHg (75.0-100.0); AaDO2 83.5 mmHg; COHb 0.3 % (0.5-1.5); MetHb 1.7 % (0.0-1.5); O2Hb 91.9 % (94.0-97.0); SITE, ABG Right Radial; VENT MODE, BG nasal cannula
--- NOTE | 2017-09-04 15:00 | NUR ---
FOLDING MACHINE TENDER NOTES S/P THORACENTESIS OF RIGHT LUNG PATIENT TOLERATED PROCEDURE WELL, FLUIDS SENT TO LABS FOR TESTS. CXR ORDERED.
[2017-09-04 16:00] VITALS: BP 141/68
--- NOTE | 2017-09-04 16:40 | NUR ---
PUBLICITY AGENT NOTES RELAYED ABG RESULT TO DR. BLAIR AND RECEIVED NEW ORDER FOR NOCTURNAL BIPAP 07/08, ORDER NOTED AND CARRIED OUT. RT MADE AWARE.
[2017-09-04] MEDS ORDERED: BOOST GLUCOSE CONTROL VANILLA 237 ML BOX PO SCH (17:00)
--- NOTE | 2017-09-04 19:15 | NUR ---
TELE/ETHANOL OPERATOR; RECEIVED PT IN BED AWAKE, ALERT AND ORIENTED. SPEECH IS CLEAR. DENIES ANY PAIN. BREATHING NON LABORED. WITH O2 2L NC ON. ON TELEMETRY. WITH HL ON RT HAND INTACT. PT IS OBESE. BED ON LOWER POSITION AND LOCKED FOR SAFETY. SIDE RAILS ARE UP FOR SAFETY. HAS FC INTACT WITH CLEAR YELLOW URINE.NO COUGHING NOTED. WILL CONTINUE TO MONITOR. CALL LIGHT WITHIN REACH.
--- NOTE | 2017-09-04 19:17 | NUR ---
DIRECTOR FUNDS DEVELOPMENT NOTES PATIENT ALERT AND ORIENTED X2-3, NO DISTRESS NOTED, NO CHANGE IN LOC NOTED, NO SOB, O2 ON 2 LPM VIA NC WITH SPO2 > 92%, ATE DINNER < 50%, WOUND TREATMENT RENDERED ORDERED, TURNED AND REPOSITIONED, CALL LIGHT WITHIN REACH, SAFETY MEASURES IN PLACED, WILL ENDORSE TO SPEED WINDER FOR DUTCH.
[2017-09-04 20:00] VITALS: BP 134/68
--- NOTE | 2017-09-04 20:59 | NUR ---
RT PT ALERT AWAKE P02 97% HR 89 RR18 PT WANTS TO BE PLACED ON BIPAP AT 2200 Addendum: 09/04/17 at 2100 by FRANCIS TAM RT Amended: Links added.
[2017-09-04] MEDS: MUPIROCIN OINT 2% 22 GM TUBE SCH (21:11)
[2017-09-04] MEDS: ATORVASTATIN 10 MG TABLET PO SCH (21:13)
--- NOTE | 2017-09-04 22:00 | NUR ---
TELE/AUTOMOTIVE VEHICLE INSPECTOR; BS 206 COVERED WITH REGULAR INSULIN 4 UNITS SQ. WILL CONTINUE TO MONITOR.
--- NOTE | 2017-09-04 22:30 | NUR ---
RT PT SP02 96% AT 3L NASAL CANNULA HR 87 RR18 PT ALERT ORIENTED PLACED ON BIPAP WITH LARGE MASK, SHES DOESNT LIKE HOW THE AIR IS BLOWING IN HER FACE, SHE IS LOOKING FOR SOMETHING SIMILAR TO HER HOME [facility] USING NASAL PRONGS. PLACE PLACE ON SMALLER MASK, AND SHE STILL DOESNT LIKE IT. SHE STATED THAT SHE CANNOT SLEEP WITH IT. INFORMED CHARGED BRENDEN AND NURSE GARZA Addendum: 09/05/17 at 0115 by FRANCIS TAM RT Amended: Links added.
--- NOTE | 2017-09-04 23:35 | NUR ---
TELE/SENIOR NET ARCHITECT; PT REQUESTED FOR SLEEPING PILL. AMBIEN 5 MH PO HS PRN GIVEN ORDERED.
[2017-09-04] MEDS: ZOLPIDEM TARTRATE 5 MG TABLET PO PRN (23:38)
[2017-09-05] VITALS: BP 110/54
[2017-09-05 04:00] VITALS: BP 147/69
[2017-09-05] MEDS: BLOOD SUGAR DIAGNOSTIC 1 EACH STRIP IN SCH ×3 (05:42→18:40)
[2017-09-05] MEDS: INSULIN REGULAR, HUMAN 100 UNIT/ML 3 ML VIAL SQ PRN ×3 (05:48→18:44)
--- NOTE | 2017-09-05 06:00 | NUR ---
TELE/TIRE TECHNICIAN; BS 181 COVERED WITH REGULAR INSULIN 3 UNITS SQ.
--- NOTE | 2017-09-05 06:44 | NUR ---
TELE/INVENTORY ACCOUNTANT; SLEPT FAIRLY. PT ON A- 93 WITH OCC. PVC'S. CONTINUE TO MONITOR ISOLATION OBSERVED. WILL ENDORSE TO THE DAY SHIFT NURSE.
--- NOTE | 2017-09-05 07:30 | NUR ---
WINE STEWARD NOTES PT IN BED, ASLEEP, RESPIRATIONS NORMAL AND NOT LABORED, EASY TO AROUSE, ALERT AND ORIENTED, NO COMPLAINT OF PAIN OR ANY DISCOMFORT, CALL LIGHT WITHIN REACH, KEPT WELT MAKER BED.
[2017-09-05 08:00] VITALS: BP 134/58
[2017-09-05] MEDS: methylPREDNISolone SOD SUCC 40 MG/ML VIAL IV SCH (08:33)
[2017-09-05] MEDS: FUROSEMIDE 100 MG/10 ML VIAL IV SCH ×3 (08:33→16:30)
[2017-09-05] MEDS: DILTIAZEM HCL CD 240 MG PO SCH (08:33)
[2017-09-05] MEDS: CLOTRIMAZOLE 1% 15 GM TUBE TP SCH ×2 (08:34→17:00)
[2017-09-05] MEDS: MULTIVIT, IRON, MIN NO. 8, FA 1 TAB PO SCH (08:34)
[2017-09-05] MEDS: FOLIC ACID 1 MG TABLET PO SCH (08:34)
[2017-09-05] MEDS: SUCRALFATE 1 G TABLET PO SCH ×3 (08:34→18:41)
[2017-09-05] MEDS: PANTOPRAZOLE 40 MG TABLET.DR PO SCH (08:34)
[2017-09-05] MEDS: ASCORBIC ACID 500 MG TABLET PO SCH (08:34)
[2017-09-05] MEDS: LEVOTHYROXINE SODIUM 75 MCG TABLET PO SCH (08:34)
[2017-09-05] MEDS: MUPIROCIN OINT 2% 22 GM TUBE SCH (08:39)
[2017-09-05] MEDS: CHOLECALCIFEROL 1,000 UNIT TABLET (VIT D3) PO SCH (08:39)
[2017-09-05] MEDS: BOOST GLUCOSE CONTROL VANILLA 237 ML BOX PO SCH ×2 (08:45→18:40)
[2017-09-05] MEDS: CEFTRIAXONE 1 G in IV D5W 50 ML IV SCH (09:52)
[2017-09-05] MEDS ORDERED: Digoxin PO (11:42)
[2017-09-05] MEDS ORDERED: LEVO500T15 PO (11:42)
[2017-09-05] MEDS ORDERED: FURO-145 PO (11:42)
[2017-09-05] MEDS ORDERED: PRED20TA PO (11:42)
[2017-09-05] MEDS ORDERED: RIVA10TA PO (11:42)
[2017-09-05] MEDS: DIGOXIN 0.25 MG TABLET PO SCH (12:25)
--- NOTE | 2017-09-05 13:00 | NUR ---
RN MS NOTES PT IN BED, AWAKE, ALERT AND ORIENTED, DENIES PAIN OR DISCOMFORT, RESPIRATIONS NORMAL, RECEIVED DISCHARGE ORDER FROM MD, PT INFORMED, VERBALIZED UNDERSTANDING.
[2017-09-05 16:00] VITALS: BP 152/91
--- NOTE | 2017-09-05 16:30 | NUR ---
RN MS NOTES PT IN BED, AWAKE, ALERT AND ORIENTED, DISCHARGE AND MEDICATION INSTRUCTIONS PROVIDED TO PT, VERBALIZED UNDERSTANDING, BELONGINGS ACCOUNTED FOR, BODY CHECK DONE, PT WISHES TO GO HOME WITH BURGER CATH ON, EXPLAINED RISKS AND BENEFITS, STILL STATED THAT SHE WANTS TO HAVE IT AND WILL JUST REMOVE IT ONCE SHE GETS HOME, INSTRUCTIONS GIVEN TO FAMILY MEMBERS ON HOW TO REMOVE F/C, VERBALIZED UNDERSTANDING, ASSISTED TO WHEELCHAIR BY SPANISH TUTOR'S, ASSISTED TO HOSPITAL LOBBY AND TO HER CAR, BUT STAFF WAS NOT ABLE TO TRANSFER HER TO THE CAR, SO SHE CAME BACK UP TO THE FLOOR SAFELY, AMBULANCE WAS CALLED, HISTOPATHOLOGIST TIME WILL BE 2029, PT TRANSFERRED TO BED SAFETY BY [employer] T[employer]OR'S, AWAITING HISTOPATHOLOGIST.
--- NOTE | 2017-09-05 19:00 | NUR ---
RN MS NOTES PT IN BED, NO COMPLAINT OF PAIN, NOT IN DISTRESS, ON O2 AT 2LPM VIA NASAL CANULA, PM MEDS GIVEN, AWAITING AMBULANCE REAL ESTATE VALUER, AT BEDSIDE, VERY APPRECIATIVE FOR THE CARE SHE RECEIVED IN THE HOSPITAL.
--- NOTE | 2017-09-05 19:28 | NUR ---
MS RN OPENING NOTES RECEIVED PATIENT RESTING IN BED IN SEMI REMY POSITION WITH O2 ON AT 3 LPM VIA NC FOR EASY BREATHING DUE TO HX OF COPD. A & O X 2-3. @ BED SIDE. DISCHARGED BY MD TO HOME WITH HOME HEALTH. 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 NO C/O PAIN, NO SOB, NO ACUTE DISTRESS NOTED. IN STABLE CONDITION. BED IN LOW LOCKED POSITION. CALL LIGHT WITHIN REACH. WILL CONTINUE TO MONITOR.
--- NOTE | 2017-09-05 21:00 | NUR ---
PATIENT DISCHARGED AMBULANCE ARRIVED, V/S CHECKED 135/78, 80, 18, 97.8, 95 % AT 2LMP O2 VIA NC. IN STABLE CONDITION. A & O X 2-3, @ BEDSIDE. ALL INSTRUCTIONS PROVIDED TO THE PATIENT & FAMILY BY AM RN, PT & FAMILY VERBALIZED UNDERSTANDING. IV LINE & ID BAND REMOVED. ALL BELONGINGS WERE ACCOUNTED FOR BY AM NURSE & SIGNED BY PATIENT. MD AWARE OF ALL ABNORMAL LABS. PT WENT HOME WITH HOME HEALTH SERVICES. TRANSFERRED PT TO THE [facility] & DISCHARGED HOME IN STABLE CONDITION WITH ALL EDUCATION & INSTRUCTIONS MATERIAL.
== END 2017-09-05 20:50 | disposition home health service (06) | DRG 291 ==
LOC: ER 16:22 → TELE 19:36 → MED 09-05 08:51 → UNDODISIN 09-05 16:50
PROVIDERS: ADMIT Internal Medicine; ATTEND Internal Medicine
PROC: 0W993ZX Drainage of Right Pleural Cavity, Percutaneous Approach, Diagnostic (ICD-10-PCS; principal; 2017-09-04)
DX: I13.2 Hypertensive heart and chronic kidney disease with heart failure and with stage 5 chronic kidney disease, or end stage renal disease (principal); I50.33 Acute on chronic diastolic (congestive) heart failure; J96.01 Acute respiratory failure with hypoxia; N17.0 Acute kidney failure with tubular necrosis; J18.9 Pneumonia, unspecified organism; E46 Unspecified protein-calorie malnutrition; R53.2 Functional quadriplegia; D68.59 Other primary thrombophilia; D69.2 Other nonthrombocytopenic purpura; J90 Pleural effusion, not elsewhere classified; N18.6 End stage renal disease; J96.22 Acute and chronic respiratory failure with hypercapnia; J44.1 Chronic obstructive pulmonary disease with (acute) exacerbation; N39.0 Urinary tract infection, site not specified; E66.2 Morbid (severe) obesity with alveolar hypoventilation; J44.0 Chronic obstructive pulmonary disease with (acute) lower respiratory infection; E11.22 Type 2 diabetes mellitus with diabetic chronic kidney disease; G20 Parkinson's disease; I48.91 Unspecified atrial fibrillation; E03.9 Hypothyroidism, unspecified; I87.8 Other specified disorders of veins; I25.10 Atherosclerotic heart disease of native coronary artery without angina pectoris; E78.5 Hyperlipidemia, unspecified; Z88.1 Allergy status to other antibiotic agents; Z79.4 Long term (current) use of insulin; Z79.899 Other long term (current) drug therapy; Z68.38 Body mass index [BMI] 38.0-38.9, adult; F02.80 Dementia in other diseases classified elsewhere, unspecified severity, without behavioral disturbance, psychotic disturbance, mood disturbance, and anxiety; D63.8 Anemia in other chronic diseases classified elsewhere; D25.9 Leiomyoma of uterus, unspecified; K76.0 Fatty (change of) liver, not elsewhere classified; K57.30 Diverticulosis of large intestine without perforation or abscess without bleeding; K21.9 Gastro-esophageal reflux disease without esophagitis; K43.9 Ventral hernia without obstruction or gangrene; M85.80 Other specified disorders of bone density and structure, unspecified site; Z66 Do not resuscitate; Z99.2 Dependence on renal dialysis; Z87.891 Personal history of nicotine dependence; Z93.1 Gastrostomy status; Z86.718 Personal history of other venous thrombosis and embolism; Z22.322 Carrier or suspected carrier of Methicillin resistant Staphylococcus aureus; L98.9 Disorder of the skin and subcutaneous tissue, unspecified; K59.09 Other constipation; Y95 Nosocomial condition; R13.10 Dysphagia, unspecified; M19.90 Unspecified osteoarthritis, unspecified site; B96.1 Klebsiella pneumoniae [K. pneumoniae] as the cause of diseases classified elsewhere; I12.9 Hypertensive chronic kidney disease with stage 1 through stage 4 chronic kidney disease, or unspecified chronic kidney disease; E87.5 Hyperkalemia
CPT/HCPCS: 36415; 36600; 71010-TC; 76942-TC; 80048-TC; 80053-TC; 80076-TC; 80162-TC; 81000-TC; 82803-TC; 82962-TC; 83605-TC; 83735-TC; 84100-TC; 84155-TC; 84439-TC; 84443-TC; 84484-TC; 85025-TC; 85730-TC; 87040-TC; 87070-TC; 87075-TC; 87081-TC; 87086-TC; 87186-TC; 88305-TC; 88312-TC; 88342; 89051-TC; A4606; J0456; J0696; J1160; J1650; J1815; J1940; J2920; J2930; J7050; J7060; Z7610